=== PATIENT | female | born 1945 | race Two or more races ===

== ENCOUNTER 2021-02-11 15:09 | Outpatient (CLI) | payer OTHER | END 2021-02-11 15:10 | disposition home or self-care (01) | LOC: LAB 15:09 | PROVIDERS: ATTEND Orthopaedic Surgery | DX: R06.02 Shortness of breath (principal); N30.00 Acute cystitis without hematuria; D64.89 Other specified anemias; E55.9 Vitamin D deficiency, unspecified; M85.88 Other specified disorders of bone density and structure, other site; E21.2 Other hyperparathyroidism; E88.89 Other specified metabolic disorders; M81.8 Other osteoporosis without current pathological fracture; E56.1 Deficiency of vitamin K ==

== ENCOUNTER 2021-02-12 16:19 | Outpatient (CLI) | payer OTHER | END 2021-02-12 16:35 | disposition home or self-care (01) | LOC: RAD 16:19 | PROVIDERS: ATTEND Orthopaedic Surgery | DX: M25.552 Pain in left hip (principal); M87.051 Idiopathic aseptic necrosis of right femur ==

== ENCOUNTER 2021-02-25 14:32 | Outpatient (CLI) | payer OTHER | END 2021-02-25 14:34 | disposition home or self-care (01) | LOC: NUCLEAR 14:32 | PROVIDERS: ATTEND Orthopaedic Surgery | DX: M81.0 Age-related osteoporosis without current pathological fracture (principal) ==

== ENCOUNTER 2021-03-11 17:06 | Outpatient (CLI) | payer OTHER | END 2021-03-11 17:15 | disposition home or self-care (01) | LOC: LAB 17:06 | PROVIDERS: ATTEND Urology | DX: R31.1 Benign essential microscopic hematuria (principal); N30.00 Acute cystitis without hematuria; M05.8A Other rheumatoid arthritis with rheumatoid factor of other specified site ==

== ENCOUNTER 2021-03-25 00:24 | Emergency (ER) | payer OTHER ==
[~2021-03-25] VITALS: Ht 157.5 cm; Wt 68.0 kg
[2021-03-25] MEDS ORDERED: LENZAPATCH 4%-1 EACH TOP (02:39)
[2021-03-27] MEDS ORDERED: DICLOFENAC POTA50 MG PO (03:05)
[2021-03-27] MEDS ORDERED: ORPHENADRINE C100 MG PO (03:05)
[2021-03-27] MEDS ORDERED: MOBIC15 MG PO (03:20)
== END 2021-03-27 02:59 | disposition home or self-care (01) ==
LOC: ER 00:24
DX: S76.011A Strain of muscle, fascia and tendon of right hip, initial encounter (principal); S76.111A Strain of right quadriceps muscle, fascia and tendon, initial encounter; R60.0 Localized edema; M79.605 Pain in left leg; I73.9 Peripheral vascular disease, unspecified; M54.2 Cervicalgia; M62.838 Other muscle spasm; W01.0XXA Fall on same level from slipping, tripping and stumbling without subsequent striking against object, initial encounter; Y93.01 Activity, walking, marching and hiking; Y92.89 Other specified places as the place of occurrence of the external cause; Y99.8 Other external cause status

== ENCOUNTER 2021-03-25 06:52 | Outpatient (CLI) | payer OTHER ==
[~2021-03-25 06:52] MED LIST: LENZAPATCH 4%-1 EACH TOP
== END 2021-03-25 07:05 | disposition home or self-care (01) ==
LOC: LAB 06:52
DX: E24.8 Other Cushing's syndrome (principal)

== ENCOUNTER 2021-03-25 17:01 | Emergency (ER) | payer OTHER ==
[~2021-03-25] VITALS: Ht 160 cm; Wt 61.2 kg
[2021-03-27] MEDS ORDERED: ORPHENADRINE C100 MG PO (03:05)
[2021-03-27] MEDS ORDERED: DICLOFENAC POTA50 MG PO (03:05)
[2021-03-27] MEDS ORDERED: MOBIC15 MG PO (03:20)
== END 2021-03-26 11:19 | disposition left against medical advice (07) ==
LOC: ER 17:01
DX: I87.2 Venous insufficiency (chronic) (peripheral) (principal); R60.0 Localized edema; M79.605 Pain in left leg; R06.02 Shortness of breath; F91.8 Other conduct disorders

== ENCOUNTER 2021-03-26 23:40 | Emergency (ER) | payer OTHER ==
[~2021-03-26] VITALS: Ht 160 cm; Wt 65.3 kg
[2021-03-27] MEDS ORDERED: ORPHENADRINE C100 MG PO (03:05)
[2021-03-27] MEDS ORDERED: DICLOFENAC POTA50 MG PO (03:05)
[2021-03-27] MEDS ORDERED: MOBIC15 MG PO (03:20)
== END 2021-03-27 03:00 | disposition home or self-care (01) ==
LOC: ER 23:40
DX: M54.2 Cervicalgia (principal); M62.838 Other muscle spasm

== ENCOUNTER 2021-03-30 23:10 | Emergency (ER) | payer OTHER ==
[~2021-03-30] VITALS: Ht 160 cm; Wt 152.0 kg
[~2021-03-30 23:10] MED LIST changes: +DICLOFENAC POTA50 MG PO; +MOBIC15 MG PO; +ORPHENADRINE C100 MG PO
[2021-03-31] MEDS ORDERED: BACTRIM DS TAB1 EACH PO (02:18)
== END 2021-03-31 02:50 | disposition home or self-care (01) ==
LOC: ER 23:10
DX: N39.0 Urinary tract infection, site not specified (principal)

== ENCOUNTER 2021-04-03 13:44 | Outpatient (CLI) | payer OTHER ==
[~2021-04-03 13:44] MED LIST changes: +BACTRIM DS TAB1 EACH PO
== END 2021-04-03 13:51 | disposition home or self-care (01) ==
LOC: MRI 13:44
PROVIDERS: ATTEND Urology
DX: I82.211 Chronic embolism and thrombosis of superior vena cava (principal)

== ENCOUNTER 2021-04-04 11:37 | Outpatient (CLI) | payer OTHER, BC | END 2021-04-04 11:38 | disposition home or self-care (01) | LOC: NUCLEAR 11:37 | PROVIDERS: ATTEND Urology | DX: I82.C23 Chronic embolism and thrombosis of internal jugular vein, bilateral (principal) ==

== ENCOUNTER 2021-04-06 00:29 | Emergency (ER) | payer OTHER, BC ==
[~2021-04-06] VITALS: Ht 160 cm; Wt 61.2 kg
[2021-04-06] MEDS ORDERED: NAPROXEN500 MG PO (03:31)
[2021-04-06] MEDS ORDERED: NORFLEX100MG PO (03:31)
== END 2021-04-06 04:21 | disposition home or self-care (01) ==
LOC: ER 00:29
DX: M25.512 Pain in left shoulder (principal)

== ENCOUNTER 2021-04-15 11:36 | Outpatient (CLI) | payer OTHER ==
[~2021-04-15 11:36] MED LIST changes: +NAPROXEN500 MG PO; +NORFLEX100MG PO
== END 2021-04-15 12:07 | disposition home or self-care (01) ==
LOC: RAD 11:36
PROVIDERS: ATTEND Orthopaedic Surgery
DX: M25.512 Pain in left shoulder (principal)

== ENCOUNTER 2021-04-25 11:52 | Outpatient (CLI) | payer OTHER, BC | END 2021-04-25 12:02 | disposition home or self-care (01) | LOC: LAB 11:52 | PROVIDERS: ATTEND Urology | DX: N30.00 Acute cystitis without hematuria (principal) ==

== ENCOUNTER → 2021-04-26 | Emergency (ER) | payer OTHER, BC ==
[~2021-04-26] VITALS: Ht 160 cm; Wt 59.0 kg
[~2021-04-26] MED LIST changes: +KETO10TA2 PO; +MEDROLPACK PO; +PROVENTIL HFA6.7 GM IH
== END | disposition left against medical advice (07) ==
LOC: ER 00:29
DX: Z53.20 Procedure and treatment not carried out because of patient's decision for unspecified reasons (principal)

== ENCOUNTER 2021-04-30 23:37 | Emergency (ER) | payer OTHER, BC ==
[~2021-04-30] VITALS: Ht 160 cm; Wt 56.7 kg
[~2021-04-30 23:37] MED LIST changes: -KETO10TA2 PO; -MEDROLPACK PO; -PROVENTIL HFA6.7 GM IH
[2021-05-01] MEDS ORDERED: PROVENTIL HFA6.7 GM IH (04:50)
== END 2021-05-01 05:39 | disposition home or self-care (01) ==
LOC: ER 23:37
DX: R05.9 Cough, unspecified (principal)

== ENCOUNTER 2021-05-03 21:50 | Emergency (ER) | payer OTHER, BC ==
[~2021-05-03] VITALS: Ht 160 cm; Wt 56.7 kg
[~2021-05-03 21:50] MED LIST changes: +PROVENTIL HFA6.7 GM IH
[2021-05-04] MEDS ORDERED: MEDROLPACK PO (02:17)
[2021-05-04] MEDS ORDERED: NORFLEX100MG PO (02:17)
[2021-05-04] MEDS ORDERED: KETO10TA2 PO (02:17)
== END 2021-05-04 06:14 | disposition home or self-care (01) ==
LOC: ER 21:50
DX: M54.2 Cervicalgia (principal)

== ENCOUNTER 2021-05-15 23:45 | Emergency (ER) | payer OTHER, BC ==
[~2021-05-15] VITALS: Ht 160 cm; Wt 59.0 kg
[~2021-05-15 23:45] MED LIST changes: -SINGULAIR10 MG; -Z-TUSS AC 2 MG118 ML PO; -ZYNCOF 20-400120 ML PO
== END 2021-05-16 02:16 | disposition home or self-care (01) ==
LOC: ER 23:45
DX: T78.40XA Allergy, unspecified, initial encounter (principal); X58.XXXA Exposure to other specified factors, initial encounter

== ENCOUNTER → 2021-05-15 | Emergency (ER) | payer OTHER, BC ==
[~2021-05-15] VITALS: Ht 160 cm; Wt 56.7 kg
[~2021-05-15] MED LIST changes: +KETO10TA2 PO; +MEDROLPACK PO; +SINGULAIR10 MG; +Z-TUSS AC 2 MG118 ML PO; +ZYNCOF 20-400120 ML PO
== END | disposition home or self-care (01) ==
LOC: ER 00:57
DX: M25.561 Pain in right knee (principal); T78.40XA Allergy, unspecified, initial encounter; X58.XXXA Exposure to other specified factors, initial encounter

== ENCOUNTER 2021-05-29 02:04 | Emergency (ER) | payer OTHER, BC ==
[~2021-05-29] VITALS: Ht 160 cm; Wt 56.7 kg
[2021-05-29] MEDS ORDERED: BACTRIM DS TAB1 EACH PO (05:39)
== END 2021-05-29 06:22 ==
LOC: ER 02:04
DX: J45.909 Unspecified asthma, uncomplicated (principal); R60.0 Localized edema; Z88.0 Allergy status to penicillin; Z88.1 Allergy status to other antibiotic agents

== ENCOUNTER 2021-06-03 00:15 | Emergency (ER) | payer OTHER, BC ==
[~2021-06-03] VITALS: Ht 160 cm; Wt 59.0 kg
[2021-06-03] MEDS ORDERED: Z-TUSS AC 2 MG118 ML PO (03:03)
== END 2021-06-03 03:29 ==
LOC: ER 00:15
DX: R06.02 Shortness of breath (principal); R05.9 Cough, unspecified

== ENCOUNTER 2021-06-08 23:19 | Emergency (ER) | payer OTHER, BC ==
[~2021-06-08] VITALS: Ht 160 cm; Wt 59.0 kg
[~2021-06-08 23:19] MED LIST changes: +Z-TUSS AC 2 MG118 ML PO
== END 2021-06-09 09:17 | disposition home or self-care (01) ==
LOC: ER 23:19
DX: J06.9 Acute upper respiratory infection, unspecified (principal); R06.02 Shortness of breath; J45.901 Unspecified asthma with (acute) exacerbation; Z88.0 Allergy status to penicillin; Z88.1 Allergy status to other antibiotic agents

== ENCOUNTER 2021-06-11 23:47 | Emergency (ER) | payer OTHER, BC ==
[~2021-06-11] VITALS: Ht 160 cm; Wt 59.0 kg
[2021-06-11] MEDS ORDERED: SINGULAIR10 MG (23:59)
[2021-06-12] MEDS ORDERED: ZYNCOF 20-400120 ML PO (04:50)
== END 2021-06-12 05:05 | disposition home or self-care (01) ==
LOC: ER 23:47
DX: J45.901 Unspecified asthma with (acute) exacerbation (principal)

== ENCOUNTER 2021-06-21 06:51 | Outpatient (CLI) | payer OTHER, BC ==
[~2021-06-21 06:51] MED LIST changes: +SINGULAIR10 MG; +ZYNCOF 20-400120 ML PO
== END 2021-06-21 06:54 | disposition home or self-care (01) ==
LOC: LAB 06:51
PROVIDERS: ATTEND Urology
DX: N30.00 Acute cystitis without hematuria (principal)

== ENCOUNTER 2021-06-24 23:28 | Emergency (ER) | payer OTHER, BC ==
[~2021-06-24] VITALS: Ht 160 cm; Wt 56.7 kg
== END 2021-06-25 04:41 | disposition home or self-care (01) ==
LOC: ER 23:28
DX: R05.9 Cough, unspecified (principal)

== ENCOUNTER 2021-07-25 23:39 | Emergency (ER) | payer OTHER ==
[~2021-07-25] VITALS: Ht 160 cm; Wt 56.7 kg
[2021-07-26] MEDS ORDERED: KETO10TA2 PO (03:04)
[2021-07-26] MEDS ORDERED: ORPHENADRINE C100 MG PO (03:04)
[2021-07-29] MEDS ORDERED: MOBIC15 MG PO (04:13)
[2021-07-31] MEDS ORDERED: LEVSIN/SL0.125 MG SL (06:12)
== END 2021-07-26 03:17 | disposition home or self-care (01) ==
LOC: ER 23:39
DX: S16.1XXA Strain of muscle, fascia and tendon at neck level, initial encounter (principal); S39.012A Strain of muscle, fascia and tendon of lower back, initial encounter; W19.XXXA Unspecified fall, initial encounter; S96.911A Strain of unspecified muscle and tendon at ankle and foot level, right foot, initial encounter; Y93.9 Activity, unspecified; Y92.9 Unspecified place or not applicable; Y99.9 Unspecified external cause status; Z88.0 Allergy status to penicillin; Z88.8 Allergy status to other drugs, medicaments and biological substances; Z91.010 Allergy to peanuts

== ENCOUNTER 2021-07-27 07:34 | Outpatient (CLI) | payer OTHER, BC ==
[~2021-07-27 07:34] MED LIST changes: -LEVSIN/SL0.125 MG SL
[2021-07-29] MEDS ORDERED: MOBIC15 MG PO (04:13)
[2021-07-31] MEDS ORDERED: LEVSIN/SL0.125 MG SL (06:12)
== END 2021-07-27 10:00 | disposition home or self-care (01) ==
LOC: LAB 07:34
PROVIDERS: ATTEND Urology
DX: N30.00 Acute cystitis without hematuria (principal)

== ENCOUNTER → 2021-07-27 | Emergency (ER) | payer OTHER ==
[~2021-07-27] VITALS: Ht 160 cm; Wt 56.7 kg
[~2021-07-27] MED LIST changes: +LEVSIN/SL0.125 MG SL
== END | disposition left against medical advice (07) ==
LOC: ER 00:48
DX: Z53.21 Procedure and treatment not carried out due to patient leaving prior to being seen by health care provider (principal)

== ENCOUNTER 2021-07-28 00:54 | Emergency (ER) | payer OTHER, BC ==
[~2021-07-28] VITALS: Ht 160 cm; Wt 56.7 kg
[2021-07-29] MEDS ORDERED: MOBIC15 MG PO (04:13)
[2021-07-31] MEDS ORDERED: LEVSIN/SL0.125 MG SL (06:12)
== END 2021-07-28 04:15 | disposition left against medical advice (07) ==
LOC: ER 00:54
DX: Z53.21 Procedure and treatment not carried out due to patient leaving prior to being seen by health care provider (principal)

== ENCOUNTER 2021-08-07 15:18 | Outpatient (CLI) | payer OTHER, BC ==
[~2021-08-07 15:18] MED LIST changes: +LEVSIN/SL0.125 MG SL
== END 2021-08-07 15:32 | disposition home or self-care (01) ==
LOC: RAD 15:18 → LAB 15:18
PROVIDERS: ATTEND Urology
DX: R06.02 Shortness of breath (principal); I50.20 Unspecified systolic (congestive) heart failure; I21.9 Acute myocardial infarction, unspecified; R07.9 Chest pain, unspecified

== ENCOUNTER 2021-09-06 13:42 | Outpatient (CLI) | payer OTHER, BC | END 2021-09-06 13:44 | disposition home or self-care (01) | LOC: LAB 13:42 | PROVIDERS: ATTEND Urology | DX: M06.4 Inflammatory polyarthropathy (principal); R31.1 Benign essential microscopic hematuria; E03.9 Hypothyroidism, unspecified; E78.5 Hyperlipidemia, unspecified; E27.9 Disorder of adrenal gland, unspecified; R73.9 Hyperglycemia, unspecified ==

== ENCOUNTER 2021-09-11 13:29 | Outpatient (CLI) | payer OTHER, BC | END 2021-09-11 13:45 | disposition home or self-care (01) | LOC: SONOGRAMA 13:29 | PROVIDERS: ATTEND Urology | DX: R31.1 Benign essential microscopic hematuria (principal); R33.9 Retention of urine, unspecified ==

== ENCOUNTER 2021-10-02 10:42 | Outpatient (CLI) | payer OTHER, BC | END 2021-10-02 16:12 | disposition home or self-care (01) | LOC: LAB 10:42 | PROVIDERS: ATTEND Urology | DX: R31.1 Benign essential microscopic hematuria (principal); N30.00 Acute cystitis without hematuria; D68.8 Other specified coagulation defects ==

== ENCOUNTER 2021-10-15 23:08 | Emergency (ER) | payer OTHER, BC ==
[~2021-10-15] VITALS: Ht 160 cm; Wt 61.2 kg
[2021-10-16] MEDS ORDERED: TOBRADEX EYE DR10 ML OP (06:22)
== END 2021-10-16 07:44 | disposition home or self-care (01) ==
LOC: ER 23:08
DX: J06.9 Acute upper respiratory infection, unspecified (principal); H60.92 Unspecified otitis externa, left ear; Z88.0 Allergy status to penicillin; Z88.1 Allergy status to other antibiotic agents; Z91.013 Allergy to seafood; Z91.018 Allergy to other foods; Z20.822 Contact with and (suspected) exposure to COVID-19

== ENCOUNTER 2021-10-17 01:18 | Emergency (ER) | payer OTHER, BC ==
[~2021-10-17] VITALS: Ht 160 cm; Wt 61.2 kg
[~2021-10-17 01:18] MED LIST changes: +TOBRADEX EYE DR10 ML OP
== END 2021-10-17 13:06 | disposition home or self-care (01) ==
LOC: ER 01:18
DX: N30.90 Cystitis, unspecified without hematuria (principal); Z20.822 Contact with and (suspected) exposure to COVID-19; Z88.0 Allergy status to penicillin; Z88.8 Allergy status to other drugs, medicaments and biological substances; Z91.010 Allergy to peanuts

== ENCOUNTER 2021-10-17 13:14 | Outpatient (CLI) | payer OTHER, BC | END 2021-10-17 13:16 | disposition home or self-care (01) | LOC: NUCLEAR 13:14 | PROVIDERS: ATTEND General Practice | DX: R22.42 Localized swelling, mass and lump, left lower limb (principal); Z88.0 Allergy status to penicillin; Z88.1 Allergy status to other antibiotic agents; Z91.010 Allergy to peanuts; Z91.013 Allergy to seafood; Z91.018 Allergy to other foods ==

== ENCOUNTER → 2021-10-18 | Outpatient (CLI) | payer OTHER, BC | END | disposition home or self-care (01) | LOC: NUCLEAR 13:00 | PROVIDERS: ATTEND General Practice | DX: R22.42 Localized swelling, mass and lump, left lower limb (principal); Z88.0 Allergy status to penicillin; Z88.1 Allergy status to other antibiotic agents; Z91.010 Allergy to peanuts; Z91.013 Allergy to seafood; Z91.018 Allergy to other foods ==

== ENCOUNTER → 2021-10-31 | Emergency (ER) | payer OTHER ==
[~2021-10-31] VITALS: Ht 160 cm; Wt 57.6 kg
[~2021-10-31] MED LIST changes: +INTESTINEX680 M1 PO
== END | disposition home or self-care (01) ==
LOC: ER 03:44
DX: R10.84 Generalized abdominal pain (principal); Z88.0 Allergy status to penicillin; Z88.8 Allergy status to other drugs, medicaments and biological substances; Z91.010 Allergy to peanuts

== ENCOUNTER 2021-11-10 03:11 | Emergency (ER) | payer OTHER ==
[~2021-11-10] VITALS: Ht 160 cm; Wt 59.0 kg
[~2021-11-10 03:11] MED LIST changes: +LEVSIN0.125 MG PO; +PEPCID AC20 MG PO
== END 2021-11-10 11:30 | disposition left against medical advice (07) ==
LOC: ER 03:11
DX: K52.9 Noninfective gastroenteritis and colitis, unspecified (principal); Z88.0 Allergy status to penicillin; Z88.8 Allergy status to other drugs, medicaments and biological substances; Z91.010 Allergy to peanuts

== ENCOUNTER 2021-11-11 09:25 | Outpatient (CLI) | payer OTHER, BC | END 2021-11-11 09:26 | disposition home or self-care (01) | LOC: LAB 09:25 | PROVIDERS: ATTEND Urology | DX: R19.7 Diarrhea, unspecified (principal) ==

== ENCOUNTER 2021-11-14 03:13 | Emergency (ER) | payer OTHER, BC ==
[~2021-11-14] VITALS: Ht 160 cm; Wt 59.0 kg
[2021-11-14] MEDS ORDERED: INTESTINEX680 M1 PO (07:24)
[2021-11-14] MEDS ORDERED: LEVSIN/SL0.125 MG SL (07:24)
== END 2021-11-14 07:41 ==
LOC: ER 03:13
DX: K21.00 Gastro-esophageal reflux disease with esophagitis, without bleeding (principal); Z88.0 Allergy status to penicillin; Z88.8 Allergy status to other drugs, medicaments and biological substances; Z91.010 Allergy to peanuts

== ENCOUNTER 2021-11-16 00:30 | Emergency (ER) | payer OTHER, BC ==
[~2021-11-16] VITALS: Ht 160 cm; Wt 61.2 kg
[2021-11-16] MEDS ORDERED: MUCINEX DM ER1 EACH PO (05:21)
[2021-11-16] MEDS ORDERED: ACETAMINOPHEN650 M2 PO (05:21)
== END 2021-11-16 05:27 | disposition home or self-care (01) ==
LOC: ER 00:30
DX: J06.9 Acute upper respiratory infection, unspecified (principal); B34.8 Other viral infections of unspecified site; Z20.828 Contact with and (suspected) exposure to other viral communicable diseases

== ENCOUNTER 2022-01-04 11:06 | Outpatient (CLI) | payer OTHER, BC ==
[~2022-01-04 11:06] MED LIST changes: +ACETAMINOPHEN650 M2 PO; +DICLOFENAC SOD100 MG PO; +MUCINEX DM ER1 EACH PO; +PEPCID40 MG PO
== END 2022-01-04 11:07 | disposition home or self-care (01) ==
LOC: LAB 11:06
PROVIDERS: ATTEND Urology
DX: I82.90 Acute embolism and thrombosis of unspecified vein (principal); R31.1 Benign essential microscopic hematuria; N30.00 Acute cystitis without hematuria; R71.8 Other abnormality of red blood cells

== ENCOUNTER 2022-01-21 00:41 | Emergency (ER) | payer OTHER, BC ==
[~2022-01-21] VITALS: Ht 160 cm; Wt 59.0 kg
[2022-01-21] MEDS ORDERED: INTESTINEX680 M1 PO (05:32)
[2022-01-21] MEDS ORDERED: PEPCID AC20 MG PO (05:32)
== END 2022-01-21 05:37 | disposition home or self-care (01) ==
LOC: ER 00:41
DX: R19.7 Diarrhea, unspecified (principal); A05.9 Bacterial foodborne intoxication, unspecified; E03.9 Hypothyroidism, unspecified; Z88.0 Allergy status to penicillin; Z88.1 Allergy status to other antibiotic agents; Z91.010 Allergy to peanuts; Z91.013 Allergy to seafood; Z88.8 Allergy status to other drugs, medicaments and biological substances

== ENCOUNTER 2022-03-12 14:35 | Outpatient (CLI) | payer OTHER, BC ==
[~2022-03-12 14:35] MED LIST changes: +GUAIFENESIN400 MG PO; +THYROID; +ZITHROMAX500 MG PO
== END 2022-03-12 14:39 | disposition home or self-care (01) ==
LOC: LAB 14:35
PROVIDERS: ATTEND Urology
DX: N30.00 Acute cystitis without hematuria (principal); Z20.822 Contact with and (suspected) exposure to COVID-19

== ENCOUNTER → 2022-03-13 | Outpatient (CLI) | payer OTHER, BC | END | disposition home or self-care (01) | LOC: SONOGRAMA 15:30 | PROVIDERS: ATTEND Obstetrics & Gynecology | DX: R10.2 Pelvic and perineal pain (principal); G25.5 Other chorea ==

== ENCOUNTER 2022-03-14 15:04 | Outpatient (CLI) | payer OTHER, BC | END 2022-03-14 15:09 | disposition home or self-care (01) | LOC: LAB 15:04 | PROVIDERS: ATTEND Urology | DX: N30.00 Acute cystitis without hematuria (principal); R31.1 Benign essential microscopic hematuria ==

== ENCOUNTER 2022-03-15 10:56 | Outpatient (CLI) | payer OTHER, BC | END 2022-03-15 11:00 | disposition home or self-care (01) | LOC: LAB 10:56 | PROVIDERS: ATTEND Urology | DX: R31.0 Gross hematuria (principal) ==

== ENCOUNTER 2022-04-03 10:13 | Outpatient (CLI) | payer OTHER, BC | END 2022-04-03 14:57 | disposition home or self-care (01) | LOC: LAB 10:13 | PROVIDERS: ATTEND Urology | DX: R31.1 Benign essential microscopic hematuria (principal); R04.2 Hemoptysis ==

== ENCOUNTER 2022-04-16 09:58 | Outpatient (CLI) | payer OTHER, BC | END 2022-04-16 10:10 | disposition home or self-care (01) | LOC: NUCLEAR 09:58 | PROVIDERS: ATTEND Internal Medicine Cardiovascular Disease | DX: I87.2 Venous insufficiency (chronic) (peripheral) (principal); Z88.0 Allergy status to penicillin; Z88.1 Allergy status to other antibiotic agents; Z91.010 Allergy to peanuts; Z91.013 Allergy to seafood; Z91.018 Allergy to other foods ==

== ENCOUNTER 2022-04-26 12:16 | Outpatient (CLI) | payer OTHER, BC | END 2022-04-26 12:17 | disposition home or self-care (01) | LOC: LAB 12:16 | PROVIDERS: ATTEND Urology | DX: N30.00 Acute cystitis without hematuria (principal) ==

== ENCOUNTER → 2022-04-28 09:54 | Outpatient (CLI) | payer OTHER, BC | END | disposition home or self-care (01) | LOC: LAB 09:54 | PROVIDERS: ATTEND Urology | DX: N30.00 Acute cystitis without hematuria (principal) ==

== ENCOUNTER → 2022-04-29 08:48 | Outpatient (CLI) | payer OTHER, BC | END | disposition home or self-care (01) | LOC: LAB 08:48 | PROVIDERS: ATTEND Urology | DX: R05.9 Cough, unspecified (principal); J18.9 Pneumonia, unspecified organism ==

== ENCOUNTER 2022-04-30 08:59 | Outpatient (CLI) | payer OTHER, BC | END 2022-04-30 09:10 | disposition home or self-care (01) | LOC: LAB 08:59 | PROVIDERS: ATTEND Urology | DX: E03.9 Hypothyroidism, unspecified (principal); F59 Unspecified behavioral syndromes associated with physiological disturbances and physical factors ==

== ENCOUNTER → 2022-05-01 08:27 | Outpatient (CLI) | payer OTHER, BC | END | disposition home or self-care (01) | LOC: LAB 08:27 | PROVIDERS: ATTEND Urology | DX: M13.80 Other specified arthritis, unspecified site (principal) ==

== ENCOUNTER 2022-05-12 12:41 | Outpatient (CLI) | payer OTHER, BC | END 2022-05-12 13:08 | disposition home or self-care (01) | LOC: LAB 12:41 | PROVIDERS: ATTEND Urology | DX: A49.1 Streptococcal infection, unspecified site (principal) ==

== ENCOUNTER 2022-05-30 13:36 | Outpatient (CLI) | payer OTHER, BC | END 2022-05-30 13:39 | disposition home or self-care (01) | LOC: TOM 13:36 | PROVIDERS: ATTEND Urology | DX: M25.512 Pain in left shoulder (principal); S42.032A Displaced fracture of lateral end of left clavicle, initial encounter for closed fracture ==

== ENCOUNTER 2022-07-15 10:24 | Outpatient (CLI) | payer OTHER, BC | END 2022-07-15 10:35 | disposition home or self-care (01) | LOC: RAD 10:24 | PROVIDERS: ATTEND Urology | DX: S42.032A Displaced fracture of lateral end of left clavicle, initial encounter for closed fracture (principal); R31.1 Benign essential microscopic hematuria ==

== ENCOUNTER 2022-08-05 22:16 | Emergency (ER) | payer OTHER ==
[~2022-08-05] VITALS: Ht 160 cm; Wt 61.2 kg
[2022-08-05] MEDS ORDERED: MONTELUKAST SODI4 M1 PO (22:31)
== END 2022-08-06 03:29 | disposition home or self-care (01) ==
LOC: ER 22:16
DX: N39.0 Urinary tract infection, site not specified (principal); E03.9 Hypothyroidism, unspecified; Z88.0 Allergy status to penicillin; Z88.8 Allergy status to other drugs, medicaments and biological substances

== ENCOUNTER 2022-09-17 14:34 | Outpatient (CLI) | payer OTHER ==
[~2022-09-17 14:34] MED LIST changes: +MONTELUKAST SODI4 M1 PO
== END 2022-09-17 14:46 | disposition home or self-care (01) ==
LOC: SONOGRAMA 14:34
DX: N31.1 Reflex neuropathic bladder, not elsewhere classified (principal); M30.0 Polyarteritis nodosa

== ENCOUNTER 2022-10-27 10:23 | Outpatient (CLI) | payer OTHER | END 2022-10-27 10:29 | disposition home or self-care (01) | LOC: RAD 10:23 | PROVIDERS: ATTEND Urology | DX: R05.3 Chronic cough (principal) ==

== ENCOUNTER 2022-12-16 09:55 | Outpatient (CLI) | payer OTHER | END 2022-12-16 10:06 | disposition home or self-care (01) | LOC: TOM 09:55 | PROVIDERS: ATTEND Urology | DX: N20.0 Calculus of kidney (principal) ==

== ENCOUNTER 2023-02-12 14:19 | Outpatient (CLI) | payer OTHER | END 2023-02-13 08:42 | disposition home or self-care (01) | LOC: TOM 14:19 | DX: J47.9 Bronchiectasis, uncomplicated (principal); M16.0 Bilateral primary osteoarthritis of hip ==

== ENCOUNTER 2023-02-23 13:50 | Outpatient (CLI) | payer OTHER | END 2023-02-23 13:51 | disposition home or self-care (01) | LOC: LAB 13:50 | PROVIDERS: ATTEND Urology | DX: I25.110 Atherosclerotic heart disease of native coronary artery with unstable angina pectoris (principal); Z88.0 Allergy status to penicillin; Z88.1 Allergy status to other antibiotic agents; Z91.018 Allergy to other foods ==

== ENCOUNTER 2023-02-24 09:24 | Outpatient (CLI) | payer OTHER | END 2023-02-24 09:25 | disposition home or self-care (01) | LOC: NUCLEAR 09:24 | DX: I25.110 Atherosclerotic heart disease of native coronary artery with unstable angina pectoris (principal) ==

== ENCOUNTER 2023-03-06 15:38 | Outpatient (CLI) | payer OTHER | END 2023-03-06 15:43 | disposition home or self-care (01) | LOC: RAD 15:38 | PROVIDERS: ATTEND Urology | DX: R31.1 Benign essential microscopic hematuria (principal) ==

== ENCOUNTER 2023-03-19 14:44 | Emergency (ER) | payer OTHER ==
[~2023-03-19] VITALS: Ht 160 cm; Wt 62.6 kg
== END 2023-03-19 17:39 | disposition home or self-care (01) ==
LOC: ER 14:44
DX: J45.909 Unspecified asthma, uncomplicated (principal); Z88.0 Allergy status to penicillin; Z91.013 Allergy to seafood; Z91.018 Allergy to other foods
CPT/HCPCS: 94640; 96365; 99284; J2930 ×2

== ENCOUNTER 2023-04-02 15:29 | Outpatient (CLI) | payer OTHER | END 2023-04-02 23:00 | disposition home or self-care (01) | LOC: LAB 15:29 | PROVIDERS: ATTEND Urology | DX: B44.7 Disseminated aspergillosis (principal) ==

== ENCOUNTER → 2023-04-06 13:40 | Outpatient (CLI) | payer OTHER ==
[2023-04-06 14:47] LABS: PH,URINE 5.5 (5.0-8.0); URINE APPEARANCE Clear; URINE BILIRRUBIN Negative (NEGATIVE); URINE BLOOD Negative; URINE COLOR Yellow; URINE GLUCOSE Negative (NEGATIVE); URINE LEUKOCYTE Trace; URINE NITRATE Negative; URINE PROTEIN Negative (NEGATIVE); URINE UROBILINOGEN 0.2 E.U./dl
[2023-04-06 14:51] LABS: URINE BACTERIA 64.2 uL (0.0-1933); URINE EPITHELIAL CELLS 6.7 uL (0.0-38.8); URINE WBC 10.1 uL (0.0-23.2)
== END | disposition home or self-care (01) ==
LOC: LAB 13:40
PROVIDERS: ATTEND Urology
DX: N30.00 Acute cystitis without hematuria (principal)

== ENCOUNTER 2023-04-08 13:12 | Outpatient (CLI) | payer OTHER | END 2023-04-08 13:14 | disposition home or self-care (01) | LOC: RAD 13:12 | PROVIDERS: ATTEND Urology | DX: R05.9 Cough, unspecified (principal) ==

== ENCOUNTER 2023-04-21 14:09 | Outpatient (CLI) | payer OTHER ==
[2023-04-21 14:38] LABS: HEMATOCRIT 38.3 % (36.0-45.00); MEAN CELL VOLUME 97.1 fL (80.00-100.00); MEAN CORPUSCULAR HEMOGLOBIN 33.1 pg (27.00-32.0); MEAN CORPUSCULAR HGB CONC 34.1 g/dl (32.0-36.0); PLATELET COUNT 249 K/uL (150-450); RED BLOOD COUNT 3.94 M/uL (4.00-6.00); RED CELL DISTRIBUTION WIDTH 14.3 % (11.5-14.5)
[2023-04-21 14:58] LABS: ALBUMIN 3.5 gm/dL (3.4-5.0); BILIRUBIN TOTAL 0.41 mg/dL (0.3-1.2); CALCIUM 9.1 mg/dL (8.5-10.1); CREATININE SERUM 0.74 mg/dL (0.55-1.02); GFR 75.71; GLOBULINA 3.8 G/DL (2.4-3.5); POTASSIUM 3.9 mEq/L (3.5-5.1); TOTAL PROTEIN 7.3 gm/dL (6.4-8.2)
[2023-04-21 15:43] LABS: TSH 9.2 uIU/mL (0.358-3.74)
== END 2023-04-21 14:16 | disposition home or self-care (01) ==
LOC: LAB 14:09
PROVIDERS: ATTEND Urology
DX: R31.1 Benign essential microscopic hematuria (principal); E78.5 Hyperlipidemia, unspecified; E03.9 Hypothyroidism, unspecified; R73.9 Hyperglycemia, unspecified; R10.10 Upper abdominal pain, unspecified; I11.0 Hypertensive heart disease with heart failure

== ENCOUNTER 2023-04-24 13:05 | Outpatient (CLI) | payer OTHER | END 2023-04-24 13:06 | disposition home or self-care (01) | LOC: TOM 13:05 | PROVIDERS: ATTEND Internal Medicine Hematology & Oncology | DX: B44.81 Allergic bronchopulmonary aspergillosis (principal) ==

== ENCOUNTER 2023-04-30 09:21 | Outpatient (CLI) | payer OTHER ==
[2023-04-30 10:22] LABS: HEMATOCRIT 37.9 % (36.0-45.00); HEMOGLOBIN 12.8 g/dL (12.0-15.00); MEAN CELL VOLUME 97.5 fL (80.00-100.00); MEAN CORPUSCULAR HGB CONC 33.9 g/dl (32.0-36.0); PLATELET COUNT 242 K/uL (150-450); RED BLOOD COUNT 3.88 M/uL (4.00-6.00); RED CELL DISTRIBUTION WIDTH 14.5 % (11.5-14.5)
== END 2023-04-30 09:23 | disposition home or self-care (01) ==
LOC: LAB 09:21
DX: J30.1 Allergic rhinitis due to pollen (principal); J45.20 Mild intermittent asthma, uncomplicated; B44.1 Other pulmonary aspergillosis; J30.89 Other allergic rhinitis; T50.995A Adverse effect of other drugs, medicaments and biological substances, initial encounter

== ENCOUNTER 2023-05-04 15:50 | Outpatient (CLI) | payer OTHER | END 2023-05-04 15:56 | disposition home or self-care (01) | LOC: RAD 15:50 | DX: W19.XXXA Unspecified fall, initial encounter (principal) ==

== ENCOUNTER → 2023-05-06 09:19 | Outpatient (CLI) | payer OTHER ==
[2023-05-06 10:21] LABS: HEMATOCRIT 38.2 % (36.0-45.00); HEMOGLOBIN 13.1 g/dL (12.0-15.00); MEAN CELL VOLUME 96.5 fL (80.00-100.00); MEAN CORPUSCULAR HGB CONC 34.2 g/dl (32.0-36.0); PLATELET COUNT 260 K/uL (150-450); RED BLOOD COUNT 3.96 M/uL (4.00-6.00); RED CELL DISTRIBUTION WIDTH 14.3 % (11.5-14.5)
[2023-05-06 11:05] LABS: ALBUMIN 3.8 gm/dL (3.4-5.0); BILIRUBIN TOTAL 0.83 mg/dL (0.3-1.2); CALCIUM 9.4 mg/dL (8.5-10.1); CREATININE SERUM 0.93 mg/dL (0.55-1.02); GFR 58.16; GLOBULINA 3.2 G/DL (2.4-3.5); POTASSIUM 3.86 mEq/L (3.5-5.1)
== END | disposition home or self-care (01) ==
LOC: LAB 09:19
PROVIDERS: ATTEND Urology
DX: K75.4 Autoimmune hepatitis (principal); R31.0 Gross hematuria; Z88.0 Allergy status to penicillin; Z88.1 Allergy status to other antibiotic agents; Z91.018 Allergy to other foods

== ENCOUNTER 2023-05-09 11:30 | Outpatient (CLI) | payer OTHER ==
[2023-05-09 14:07] LABS: URINE APPEARANCE Clear; URINE BILIRRUBIN Negative (NEGATIVE); URINE BLOOD Negative; URINE COLOR Dark Yellow; URINE GLUCOSE Negative (NEGATIVE); URINE LEUKOCYTE Trace; URINE NITRATE Negative; URINE PROTEIN Negative (NEGATIVE); URINE UROBILINOGEN 0.2 E.U./dl
[2023-05-09 14:11] LABS: URINE BACTERIA 694.1 uL (0.0-1933); URINE RBC 6.3 uL (0.0-20.8)
[2023-05-09 14:17] LABS: URINE EPITHELIAL CELLS 1.3 uL (0.0-38.8)
== END 2023-05-09 11:31 | disposition home or self-care (01) ==
LOC: LAB 11:30
PROVIDERS: ATTEND Urology
DX: N30.00 Acute cystitis without hematuria (principal); A49.3 Mycoplasma infection, unspecified site

== ENCOUNTER 2023-05-19 15:21 | Outpatient (CLI) | payer OTHER ==
[2023-05-24 16:09] LABS: ASPERGILLUS FLAVUS Negative (Neg:<1:1); ASPERGILLUS FUMIGATUS Negative (Neg:<1:1); ASPERGILLUS NIGER Negative (Neg:<1:1)
== END 2023-05-19 15:27 | disposition home or self-care (01) ==
LOC: LAB 15:21
PROVIDERS: ATTEND Urology
DX: B44.9 Aspergillosis, unspecified (principal); I50.20 Unspecified systolic (congestive) heart failure

== ENCOUNTER 2023-05-21 16:06 | Outpatient (CLI) | payer OTHER | END 2023-05-21 16:19 | disposition home or self-care (01) | LOC: TOM 16:06 | PROVIDERS: ATTEND Urology | DX: M84.341A Stress fracture, right hand, initial encounter for fracture (principal) ==

== ENCOUNTER → 2023-05-22 11:08 | Outpatient (CLI) | payer OTHER | END | disposition home or self-care (01) | LOC: LAB 11:08 | PROVIDERS: ATTEND Urology | DX: R19.7 Diarrhea, unspecified (principal) ==

== ENCOUNTER → 2023-05-22 | Outpatient (CLI) | payer OTHER | END | disposition home or self-care (01) | LOC: TOM 15:17 | DX: J33.8 Other polyp of sinus (principal) ==

== ENCOUNTER → 2023-05-30 11:54 | Outpatient (CLI) | payer OTHER ==
[2023-05-30 14:17] LABS: URINE APPEARANCE Clear; URINE BILIRRUBIN Negative (NEGATIVE); URINE BLOOD Negative; URINE COLOR Yellow; URINE GLUCOSE Negative (NEGATIVE); URINE LEUKOCYTE Moderate; URINE NITRATE Negative; URINE PROTEIN Trace (NEGATIVE); URINE UROBILINOGEN 0.2 E.U./dl
[2023-05-30 14:21] LABS: URINE EPITHELIAL CELLS 12.9 uL (0.0-38.8); URINE RBC 4.7 uL (0.0-20.8); URINE WBC 31.6 uL (0.0-23.2)
== END | disposition home or self-care (01) ==
LOC: LAB 11:54
PROVIDERS: ATTEND Urology
DX: N30.00 Acute cystitis without hematuria (principal)

== ENCOUNTER 2023-06-02 16:08 | Outpatient (CLI) | payer OTHER ==
[2023-06-02 18:45] LABS: URINE APPEARANCE Clear; URINE BILIRRUBIN Negative (NEGATIVE); URINE BLOOD Negative; URINE COLOR Dark Yellow; URINE GLUCOSE Negative (NEGATIVE); URINE LEUKOCYTE Trace; URINE NITRATE Negative; URINE PROTEIN 30 (NEGATIVE)
[2023-06-02 18:48] LABS: URINE BACTERIA 122.1 uL (0.0-1933); URINE WBC 11.8 uL (0.0-23.2)
== END 2023-06-02 16:26 | disposition home or self-care (01) ==
LOC: LAB 16:08
PROVIDERS: ATTEND Urology
DX: N30.00 Acute cystitis without hematuria (principal)

== ENCOUNTER 2023-06-09 20:10 | Emergency (ER) | payer OTHER ==
[~2023-06-09] VITALS: Ht 160 cm; Wt 61.2 kg
[2023-06-09] MEDS ORDERED: SYNTHROID100 MCG PO (20:39)
[2023-06-10] MEDS ORDERED: ORAPRED ODT10 MG PO (01:36)
[2023-06-10] MEDS ORDERED: FUROSEMIDE20 MG PO (04:04)
== END 2023-06-10 00:18 | disposition left against medical advice (07) ==
LOC: ER 20:10
DX: R06.9 Unspecified abnormalities of breathing (principal); R06.02 Shortness of breath

== ENCOUNTER 2023-06-10 01:09 | Emergency (ER) | payer OTHER ==
[~2023-06-10] VITALS: Ht 160 cm; Wt 61.2 kg
[~2023-06-10 01:09] MED LIST changes: +SYNTHROID100 MCG PO
[2023-06-10] MEDS ORDERED: ORAPRED ODT10 MG PO (01:36)
[2023-06-10] MEDS ORDERED: FUROsemide 20 MG TABLET PO STA (02:51)
[2023-06-10] MEDS ORDERED: SODIUM CHLORIDE FOR INHALATION 1 VIAL.NEB IH STA (02:57)
[2023-06-10] MEDS ORDERED: FUROSEMIDE20 MG PO (04:04)
== END 2023-06-10 04:10 ==
LOC: ER 01:09
DX: R53.81 Other malaise (principal); R60.0 Localized edema; Z88.0 Allergy status to penicillin; Z88.1 Allergy status to other antibiotic agents; Z91.018 Allergy to other foods

== ENCOUNTER 2023-06-16 03:48 | Emergency (ER) | payer OTHER ==
[~2023-06-16] VITALS: Ht 152.4 cm; Wt 70.3 kg
[~2023-06-16 03:48] MED LIST changes: +FUROSEMIDE20 MG PO; +ORAPRED ODT10 MG PO
[2023-06-16] MEDS ORDERED: KETOROLAC TROMETHAMINE 60 MG VIAL IM STA (05:18)
[2023-06-16] MEDS ORDERED: OxyCODONE HCL/APAP UD (PERCOCET) PO STA (05:18)
== END 2023-06-16 09:57 | disposition home or self-care (01) ==
LOC: ER 03:48
DX: S70.01XA Contusion of right hip, initial encounter (principal); S70.11XA Contusion of right thigh, initial encounter; W18.39XA Other fall on same level, initial encounter; Y93.89 Activity, other specified; Y92.413 State road as the place of occurrence of the external cause; Y99.9 Unspecified external cause status; M16.11 Unilateral primary osteoarthritis, right hip; Z88.0 Allergy status to penicillin; Z88.8 Allergy status to other drugs, medicaments and biological substances; Z91.010 Allergy to peanuts; M85.89 Other specified disorders of bone density and structure, multiple sites
CPT/HCPCS: 72020; 73502; 73552; 73700; 96372; 99284; J1885

== ENCOUNTER 2023-06-20 12:59 | Outpatient (CLI) | payer OTHER ==
[2023-06-20 14:32] LABS: T4 TOTAL 3.89 UG/DL (4.8-13.9)
[2023-06-20 14:33] LABS: TSH 18.4 uIU/mL (0.358-3.74)
== END 2023-06-20 13:05 | disposition home or self-care (01) ==
LOC: LAB 12:59
DX: E03.9 Hypothyroidism, unspecified (principal); M06.4 Inflammatory polyarthropathy

== ENCOUNTER 2023-06-23 04:07 | Emergency (ER) | payer OTHER ==
[~2023-06-23] VITALS: Ht 160 cm; Wt 61.2 kg
[2023-06-23] MEDS ORDERED: KETOROLAC TROMETHAMINE 60 MG VIAL IM STA (06:31)
[2023-06-23] MEDS ORDERED: OxyCODONE HCL/APAP UD (PERCOCET) PO STA (06:32)
[2023-06-23] MEDS ORDERED: ACETAMINOPHEN 500 MG GEL..CAP PO STA (06:33)
== END 2023-06-23 09:01 | disposition home or self-care (01) ==
LOC: ER 04:07
DX: M25.551 Pain in right hip (principal); Z88.0 Allergy status to penicillin; Z88.8 Allergy status to other drugs, medicaments and biological substances; Z91.010 Allergy to peanuts
CPT/HCPCS: 96372; 99282; J1885

== ENCOUNTER 2023-07-02 09:06 | Outpatient (CLI) | payer OTHER | END 2023-07-02 09:20 | disposition home or self-care (01) | LOC: TOM 09:06 | PROVIDERS: ATTEND Urology | DX: Z91.49 Other personal history of psychological trauma, not elsewhere classified (principal); W17.2XXA Fall into hole, initial encounter; Z88.0 Allergy status to penicillin; Z88.1 Allergy status to other antibiotic agents; Z91.018 Allergy to other foods ==

== ENCOUNTER → 2023-07-02 | Emergency (ER) | payer OTHER ==
[~2023-07-02] VITALS: Ht 160 cm; Wt 61.2 kg
== END | disposition left against medical advice (07) ==
LOC: ER 03:17
DX: Z53.21 Procedure and treatment not carried out due to patient leaving prior to being seen by health care provider (principal)

== ENCOUNTER 2023-07-08 23:19 | Emergency (ER) | payer OTHER ==
[~2023-07-08] VITALS: Ht 160 cm; Wt 61.2 kg
== END 2023-07-09 | disposition left against medical advice (07) ==
LOC: ER 23:19
DX: R06.02 Shortness of breath (principal); S89.82XA Other specified injuries of left lower leg, initial encounter; W19.XXXA Unspecified fall, initial encounter; Y93.89 Activity, other specified; Y92.89 Other specified places as the place of occurrence of the external cause; Z88.0 Allergy status to penicillin; Z88.6 Allergy status to analgesic agent; Z88.8 Allergy status to other drugs, medicaments and biological substances; J45.909 Unspecified asthma, uncomplicated

== ENCOUNTER 2023-08-05 12:46 | Outpatient (CLI) | payer OTHER ==
[2023-08-05 14:22] LABS: HEMATOCRIT 36.5 % (36.0-45.00); HEMOGLOBIN 12.4 g/dL (12.0-15.00); MEAN CELL VOLUME 95.2 fL (80.00-100.00); MEAN CORPUSCULAR HEMOGLOBIN 32.4 pg (27.00-32.0); PLATELET COUNT 229 K/uL (150-450); RED BLOOD COUNT 3.83 M/uL (4.00-6.00); RED CELL DISTRIBUTION WIDTH 14.4 % (11.5-14.5)
[2023-08-05 14:34] LABS: ERYTHROCYTE SEDIMENTATION RATE 18 mm/hr
[2023-08-05 14:40] LABS: URINE APPEARANCE Clear; URINE BILIRRUBIN Negative (NEGATIVE); URINE BLOOD Negative; URINE COLOR Yellow; URINE GLUCOSE Negative (NEGATIVE); URINE LEUKOCYTE Trace; URINE NITRATE Negative; URINE PROTEIN Negative (NEGATIVE)
[2023-08-05 14:44] LABS: URINE BACTERIA 65.5 uL (0.0-1933); URINE EPITHELIAL CELLS 2.6 uL (0.0-38.8); URINE RBC 3.8 uL (0.0-20.8); URINE WBC 4.1 uL (0.0-23.2)
[2023-08-05 15:26] LABS: ALBUMIN 3.5 gm/dL (3.4-5.0); BILIRUBIN TOTAL 0.6 mg/dL (0.3-1.2); CALCIUM 9.6 mg/dL (8.5-10.1); CREATININE SERUM 0.96 mg/dL (0.55-1.02); GFR 56.06; GLOBULINA 3.1 G/DL (2.4-3.5); POTASSIUM 4.38 mEq/L (3.5-5.1); TOTAL PROTEIN 6.6 gm/dL (6.4-8.2)
== END 2023-08-05 12:47 | disposition home or self-care (01) ==
LOC: LAB 12:46
PROVIDERS: ATTEND Urology
DX: N30.00 Acute cystitis without hematuria (principal); R31.0 Gross hematuria; L30.0 Nummular dermatitis

== ENCOUNTER 2023-08-08 11:40 | Outpatient (CLI) | payer OTHER | END 2023-08-08 11:50 | disposition home or self-care (01) | LOC: LAB 11:40 | DX: J30.9 Allergic rhinitis, unspecified (principal) ==

== ENCOUNTER 2023-10-23 12:08 | Outpatient (CLI) | payer OTHER ==
[2023-10-23 13:14] LABS: HEMATOCRIT 36.3 % (36.0-45.00); HEMOGLOBIN 12.6 g/dL (12.0-15.00); MEAN CELL VOLUME 92.9 fL (80.00-100.00); MEAN CORPUSCULAR HEMOGLOBIN 32.2 pg (27.00-32.0); MEAN CORPUSCULAR HGB CONC 34.7 g/dl (32.0-36.0); PLATELET COUNT 259 K/uL (150-450); RED BLOOD COUNT 3.91 M/uL (4.00-6.00); RED CELL DISTRIBUTION WIDTH 14.2 % (11.5-14.5)
[2023-10-23 15:16] LABS: PH,URINE 5.5 (5.0-8.0); URINE APPEARANCE Clear; URINE BILIRRUBIN Negative (NEGATIVE); URINE BLOOD Negative; URINE COLOR Yellow; URINE GLUCOSE Negative (NEGATIVE); URINE LEUKOCYTE Trace; URINE NITRATE Negative; URINE PROTEIN Trace (NEGATIVE)
[2023-10-23 15:20] LABS: URINE BACTERIA 313.6 uL (0.0-1933); URINE EPITHELIAL CELLS 28.5 uL (0.0-38.8); URINE RBC 2.2 uL (0.0-20.8); URINE WBC 24.4 uL (0.0-23.2)
== END 2023-10-23 12:15 | disposition home or self-care (01) ==
LOC: LAB 12:08
PROVIDERS: ATTEND Urology
DX: N30.00 Acute cystitis without hematuria (principal)

== ENCOUNTER 2023-11-05 14:58 | Outpatient (CLI) | payer OTHER ==
[2023-11-05 17:03] LABS: CALCIUM 9.5 mg/dL (8.5-10.1); CREATININE SERUM 0.87 mg/dL (0.55-1.02); GFR 62.65; MAGNESIUM 2.3 mg/dL (1.8-2.4); POTASSIUM 3.49 mEq/L (3.5-5.1)
[2023-11-05 17:29] LABS: URINE APPEARANCE Cloudy; URINE BILIRRUBIN Negative (NEGATIVE); URINE BLOOD Negative; URINE COLOR Yellow; URINE GLUCOSE Negative (NEGATIVE); URINE LEUKOCYTE Moderate; URINE NITRATE Positive; URINE PROTEIN Negative (NEGATIVE)
[2023-11-05 17:33] LABS: URINE EPITHELIAL CELLS 24.7 uL (0.0-38.8); URINE RBC 2.4 uL (0.0-20.8); URINE WBC 376.4 uL (0.0-23.2)
[2023-11-05 17:56] LABS: URINE BACTERIA > 9821.5 uL (0.0-1933)
[2023-11-06 10:42] LABS: VITAMIN D3 25 HYDROXY 46.25 ng/ml (30-120)
[2023-11-13 13:12] LABS: VITAMIN C 0.5 mg/dL (0.4-2.0)
== END 2023-11-05 23:00 | disposition home or self-care (01) ==
LOC: LAB 14:58
PROVIDERS: ATTEND Urology
DX: N31.1 Reflex neuropathic bladder, not elsewhere classified (principal); D51.1 Vitamin B12 deficiency anemia due to selective vitamin B12 malabsorption with proteinuria; E55.9 Vitamin D deficiency, unspecified; R19.7 Diarrhea, unspecified; N30.00 Acute cystitis without hematuria

== ENCOUNTER 2023-11-10 11:45 | Outpatient (CLI) | payer OTHER | END 2023-11-10 11:47 | disposition home or self-care (01) | LOC: LAB 11:45 | PROVIDERS: ATTEND Urology | DX: R19.7 Diarrhea, unspecified (principal) ==

== ENCOUNTER 2023-11-11 10:34 | Outpatient (CLI) | payer OTHER | END 2023-11-11 10:50 | disposition home or self-care (01) | LOC: RAD 10:34 | PROVIDERS: ATTEND Urology | DX: N30.00 Acute cystitis without hematuria (principal); M25.712 Osteophyte, left shoulder; M67.3 Transient synovitis ==

== ENCOUNTER 2023-11-12 21:40 | Inpatient (IN) | payer OTHER ==
[~2023-11-12] VITALS: Ht 157.5 cm; Wt 61.2 kg
--- NOTE | 2023-11-12 21:58 | NUR ---
SE RECIBE PTE ALERTA Y ORIENTADA LA CUAL REFIERE VENIR POR TRAUMA EN LA TARDE DE HOY. SE MIDEN S/V A PTE Y SE UBICA.
[2023-11-12] MEDS ORDERED: KETOROLAC TROMETHAMINE 60 MG VIAL IM ONE ×2 (22:30→22:35)
[2023-11-12] MEDS ORDERED: LEVALBUTEROL HCL 0.63 MG/3 ML SOLUTION IH ONE ×2 (22:30→23:46)
--- NOTE | 2023-11-12 22:44 | NUR ---
PACIENTE EVALUADA POR QUIEN ORDENA TRATAMIENTO MEDICO, SE LE ORIENTA A PACIENTE SOBRE EL MISMO Y VERBALIZA ENTENDER, SE LE ADMINSITRAN MEDICAMENTOS SANDRO ORDEN.
--- NOTE | 2023-11-12 23:50 | NUR ---
PTE ALERTA Y ORIENTADA X3, SE VETO SV Y SE DOCUMENTA EN SISTEMA, SE NOTIFICAN TERAPIAS PENDIENTES. PENDIENTE CONSULTA CON TRABAJO SOCIAL.
--- NOTE | 2023-11-13 07:17 | NUR ---
SE RECIBE PACIENTE ALERTA Y ORIENTADA AL MOMENTO EN [place] EN REPOSO. PENDIENTE CONSULTA CON TRABAJO SOCIAL.
[2023-11-13] MEDS ORDERED: FAMOTIDINE/PF 20 MG in 0.9 % SODIUM CHLORIDE 100 ML IV SCH (10:00)
[2023-11-13] MEDS ORDERED: 0.9 % SODIUM CHLORIDE 1,000 ML IV SCH (10:00)
[2023-11-13] MEDS ORDERED: KETOROLAC TROMETHAMINE 30 MG VIAL IM PRN (10:15)
[2023-11-13 10:51] LABS: HEMATOCRIT 35.1 % (36.0-45.00); HEMOGLOBIN 12.1 g/dL (12.0-15.00); MEAN CELL VOLUME 92.1 fL (80.00-100.00); MEAN CORPUSCULAR HEMOGLOBIN 31.8 pg (27.00-32.0); MEAN CORPUSCULAR HGB CONC 34.5 g/dl (32.0-36.0); PLATELET COUNT 215 K/uL (150-450); RED BLOOD COUNT 3.81 M/uL (4.00-6.00); RED CELL DISTRIBUTION WIDTH 14.9 % (11.5-14.5)
[2023-11-13 11:15] LABS: INR 1.08; PARTIAL THROMBOPLASTIN TIME 26.9 SECONDS (22.0-34.0); PROTHROMBIN TIME 11.3 SECONDS (9.0-11.5)
[2023-11-13] MEDS ORDERED: FAMOtidine 200mg/20ml VIAL ONE (11:25)
[2023-11-13 11:34] LABS: CREATININE SERUM 0.83 mg/dL (0.55-1.02); GFR 66.14; POTASSIUM 3.88 mEq/L (3.5-5.1)
[2023-11-13 11:57] LABS: PH,URINE 6.5 (5.0-8.0); URINE APPEARANCE Clear; URINE BILIRRUBIN Negative (NEGATIVE); URINE BLOOD Negative; URINE COLOR Yellow; URINE GLUCOSE Negative (NEGATIVE); URINE KETONE Negative (NEGATIVE); URINE LEUKOCYTE Small; URINE NITRATE Negative; URINE PROTEIN Negative (NEGATIVE); URINE UROBILINOGEN 0.2 E.U./dl
[2023-11-13 11:58] LABS: URINE BACTERIA 89.4 uL (0.0-1933); URINE EPITHELIAL CELLS 11.5 uL (0.0-38.8); URINE RBC 9.7 uL (0.0-20.8); URINE WBC 37.8 uL (0.0-23.2)
[2023-11-14] MEDS ORDERED: LEVOTHYROXINE SODIUM 100 MCG TABLET PO SCH (06:00)
[2023-11-14] MEDS ORDERED: ENOXAPARIN SODIUM 40 MG/0.4 ML SYRINGE SUBCUTANEO SCH ×2 (09:00→21:00)
[2023-11-14] MEDS ORDERED: LEVALBUTEROL HCL 1.25 MG/3 ML SOLUTION IH SCH (09:00)
[2023-11-14] MEDS ORDERED: ENOXAPARIN SODIUM 40 MG/0.4 ML SYRINGE SUBCUTANEO STA (15:45)
[2023-11-14 17:28] LABS: ABG PH 7.478 (7.35-7.45); ABG PO2 96.7 mmHg (80-100); ABG pCO2 29.8 mmHg (35-45); BASE EXCESS -0.7 mmol/l; BICARBONATE 21.6 mmol/l (23-25); Tco2 22.5 mmol/l
[2023-11-14 17:31] LABS: allen test SATISFACTORY; o2 40 %; puncture site RADIAL RIGHT
[2023-11-15] MEDS ORDERED: ENOXAPARIN SODIUM 60 MG/0.6 ML SYRINGE SUBCUTANEO SCH ×3 (09:00→21:00)
[2023-11-15] MEDS ORDERED: ENALAPRILAT DIHYDRATE 1.25 MG/ML VIAL IV PRN (10:30)
[2023-11-15] MEDS ORDERED: ENOXAPARIN SODIUM 60 MG/0.6 ML SYRINGE SUBCUTANEO ONE (18:49)
[2023-11-16 07:21] LABS: HEMATOCRIT 32.5 % (36.0-45.00); HEMOGLOBIN 11.4 g/dL (12.0-15.00); MEAN CELL VOLUME 90.7 fL (80.00-100.00); MEAN CORPUSCULAR HGB CONC 35.2 g/dl (32.0-36.0); PLATELET COUNT 210 K/uL (150-450); RED BLOOD COUNT 3.58 M/uL (4.00-6.00); RED CELL DISTRIBUTION WIDTH 14.4 % (11.5-14.5)
[2023-11-16 08:22] LABS: ALBUMIN 2.7 gm/dL (3.4-5.0); BILIRUBIN TOTAL 0.86 mg/dL (0.3-1.2); CALCIUM 7.9 mg/dL (8.5-10.1); CREATININE SERUM 0.66 mg/dL (0.55-1.02); GFR 86.17; GLOBULINA 2.5 G/DL (2.4-3.5); POTASSIUM 4.56 mEq/L (3.5-5.1); TOTAL PROTEIN 5.2 gm/dL (6.4-8.2)
[2023-11-16 13:14] LABS: ABG PH 7.484 (7.35-7.45); ABG pCO2 29.6 mmHg (35-45)
[2023-11-16 13:15] LABS: ABG PO2 50.6 mmHg (80-100); BASE EXCESS -0.4 mmol/l; BICARBONATE 21.8 mmol/l (23-25); SaO2 88.5 %; Tco2 22.7 mmol/l; o2 21 %
[2023-11-16 13:16] LABS: allen test SATISFACTORY; puncture site RADIAL RIGHT
[2023-11-17] MEDS ORDERED: AZITHROMYCIN 500 MG in 0.9 % SODIUM CHLORIDE 250 ML IV SCH (09:41)
[2023-11-17] MEDS ORDERED: FF) Daptomycin 500 MG/VIAL IV SCH (10:00)
[2023-11-17] MEDS ORDERED: SODIUM CHLORIDE 0.45 % 1,000 ML IV SCH (16:15)
[2023-11-17] MEDS ORDERED: KETOROLAC TROMETHAMINE 30 MG VIAL ONE (18:07)
[2023-11-18 08:06] LABS: HEMATOCRIT 25.5 % (36.0-45.00); MEAN CELL VOLUME 89.2 fL (80.00-100.00); MEAN CORPUSCULAR HGB CONC 35.7 g/dl (32.0-36.0); PLATELET COUNT 186 K/uL (150-450); RED BLOOD COUNT 2.86 M/uL (4.00-6.00); RED CELL DISTRIBUTION WIDTH 14.6 % (11.5-14.5)
[2023-11-18] MEDS ORDERED: RIVAROXABAN 10 MG TAB PO SCH (09:00)
[2023-11-18 09:12] LABS: MEAN CORPUSCULAR HEMOGLOBIN 31.8 pg (27.00-32.0)
[2023-11-18 09:13] LABS: HEMOGLOBIN 9.1 g/dL (12.0-15.00)
[2023-11-18] MEDS ORDERED: (FF) Daptomycin 50 MG/ML IV NR (10:00)
[2023-11-18 14:32] LABS: ABG PH 7.465 (7.35-7.45)
[2023-11-18 14:33] LABS: BASE EXCESS -0.8 mmol/l; BICARBONATE 21.8 mmol/l (23-25); SaO2 85.3 %; Tco2 22.8 mmol/l; allen test SATISFACTORY; o2 21 %; puncture site RADIAL RIGHT
[2023-11-18] MEDS ORDERED: KETOROLAC TROMETHAMINE 30 MG VIAL IM PRN (15:45)
[2023-11-19 08:37] LABS: MEAN CELL VOLUME 88.8 fL (80.00-100.00); MEAN CORPUSCULAR HGB CONC 35.9 g/dl (32.0-36.0); PLATELET COUNT 167 K/uL (150-450); RED BLOOD COUNT 2.53 M/uL (4.00-6.00); RED CELL DISTRIBUTION WIDTH 14.4 % (11.5-14.5)
[2023-11-19] MEDS ORDERED: RIVAROXABAN 15 MG TABLET PO SCH (09:00)
[2023-11-19 10:14] LABS: HEMATOCRIT 22.5 % (36.0-45.00)
[2023-11-19 11:04] LABS: HEMOGLOBIN 8.1 g/dL (12.0-15.00)
[2023-11-20] MEDS ORDERED: FAMOTIDINE/PF 20 MG/2 ML VIAL IV NR (12:15)
[2023-11-20] MEDS ORDERED: FAMOTIDINE/PF 20 MG/2 ML VIAL IV SCH (21:00)
[2023-11-21 03:07] LABS: MEAN CELL VOLUME 88.6 fL (80.00-100.00); MEAN CORPUSCULAR HEMOGLOBIN 31.2 pg (27.00-32.0); MEAN CORPUSCULAR HGB CONC 35.5 g/dl (32.0-36.0); PLATELET COUNT 210 K/uL (150-450); RED BLOOD COUNT 2.72 M/uL (4.00-6.00); RED CELL DISTRIBUTION WIDTH 14.5 % (11.5-14.5)
[2023-11-21 03:08] LABS: HEMATOCRIT 24.1 % (36.0-45.00); HEMOGLOBIN 8.5 g/dL (12.0-15.00)
[2023-11-21] MEDS ORDERED: DIPHENHYDRAMINE HCL 50 MG/ML VIAL 1ML IV SCH (14:15)
[2023-11-22 02:27] LABS: HEMATOCRIT 28.6 % (36.0-45.00); HEMOGLOBIN 10.1 g/dL (12.0-15.00); MEAN CELL VOLUME 87.3 fL (80.00-100.00); MEAN CORPUSCULAR HEMOGLOBIN 30.8 pg (27.00-32.0); MEAN CORPUSCULAR HGB CONC 35.3 g/dl (32.0-36.0); PLATELET COUNT 224 K/uL (150-450); RED BLOOD COUNT 3.28 M/uL (4.00-6.00); RED CELL DISTRIBUTION WIDTH 14.4 % (11.5-14.5)
[2023-11-23 13:16] LABS: ABG PH 7.467 (7.35-7.45); ABG pCO2 32.8 mmHg (35-45); BASE EXCESS 0.3 mmol/l; BICARBONATE 23.2 mmol/l (23-25); SaO2 94.9 %; Tco2 24.2 mmol/l; allen test SATISFACTORY; o2 21 %; puncture site RADIAL RIGHT
[2023-11-24 10:45] LABS: HEMATOCRIT 29.3 % (36.0-45.00); HEMOGLOBIN 10.1 g/dL (12.0-15.00); MEAN CELL VOLUME 87.3 fL (80.00-100.00); MEAN CORPUSCULAR HEMOGLOBIN 30.1 pg (27.00-32.0); MEAN CORPUSCULAR HGB CONC 34.5 g/dl (32.0-36.0); PLATELET COUNT 326 K/uL (150-450); RED BLOOD COUNT 3.36 M/uL (4.00-6.00); RED CELL DISTRIBUTION WIDTH 14.7 % (11.5-14.5)
[2023-11-24 11:50] LABS: ALBUMIN 2.2 gm/dL (3.4-5.0); BILIRUBIN TOTAL 1.28 mg/dL (0.3-1.2); CALCIUM 8.2 mg/dL (8.5-10.1); CREATININE SERUM 0.49 mg/dL (0.55-1.02); GFR 121.51; POTASSIUM 4.23 mEq/L (3.5-5.1); TOTAL PROTEIN 5.2 gm/dL (6.4-8.2)
[2023-11-24] MEDS ORDERED: KETOROLAC TROMETHAMINE 30 MG VIAL IM PRN (20:45)
[2023-11-25 10:54] LABS: PH,URINE 5.5 (5.0-8.0); URINE APPEARANCE Turbid; URINE BILIRRUBIN Small (NEGATIVE); URINE BLOOD Moderate; URINE COLOR Orange; URINE GLUCOSE Negative (NEGATIVE); URINE KETONE Negative (NEGATIVE); URINE LEUKOCYTE Large; URINE NITRATE Positive; URINE PROTEIN 30 (NEGATIVE)
[2023-11-25 10:59] LABS: URINE CAST 7.75 uL (0.0-1.40); URINE EPITHELIAL CELLS 11.9 uL (0.0-38.8); URINE RBC 476.1 uL (0.0-20.8); URINE WBC 2568.8 uL (0.0-23.2)
[2023-11-25 11:06] LABS: HEMATOCRIT 28.6 % (36.0-45.00); HEMOGLOBIN 9.9 g/dL (12.0-15.00); MEAN CORPUSCULAR HEMOGLOBIN 30.3 pg (27.00-32.0); MEAN CORPUSCULAR HGB CONC 34.4 g/dl (32.0-36.0); PLATELET COUNT 385 K/uL (150-450); RED BLOOD COUNT 3.25 M/uL (4.00-6.00); RED CELL DISTRIBUTION WIDTH 14.8 % (11.5-14.5)
[2023-11-25 11:17] LABS: URINE BACTERIA > 9821.5 uL (0.0-1933); URINE YEAST FEW /hpf
[2023-11-26] MEDS ORDERED: AMIKACIN SULFATE 250 MG/ML (500MG) VIAL IV ONE (21:00)
[2023-11-26] MEDS ORDERED: DIPHENHYDRAMINE HCL 50 MG CAPSULE PO STA (22:01)
[2023-11-26] MEDS ORDERED: DIPHENHYDRAMINE HCL 50 MG CAPSULE PO PRN (22:15)
[2023-11-27 11:21] LABS: HEMATOCRIT 27.5 % (36.0-45.00); MEAN CELL VOLUME 87.1 fL (80.00-100.00); MEAN CORPUSCULAR HEMOGLOBIN 31.8 pg (27.00-32.0); MEAN CORPUSCULAR HGB CONC 36.4 g/dl (32.0-36.0); PLATELET COUNT 444 K/uL (150-450); RED BLOOD COUNT 3.15 M/uL (4.00-6.00); RED CELL DISTRIBUTION WIDTH 14.5 % (11.5-14.5)
[2023-11-27 15:10] LABS: PH,URINE 5.5 (5.0-8.0); URINE APPEARANCE Clear; URINE BILIRRUBIN Negative (NEGATIVE); URINE COLOR Yellow; URINE GLUCOSE Negative (NEGATIVE); URINE KETONE Negative (NEGATIVE); URINE LEUKOCYTE Moderate; URINE NITRATE Positive; URINE PROTEIN Negative (NEGATIVE)
[2023-11-27 15:13] LABS: URINE BACTERIA 3852.8 uL (0.0-1933); URINE RBC 115.2 uL (0.0-20.8); URINE WBC 129.2 uL (0.0-23.2)
[2023-11-27 15:46] LABS: URINE BLOOD TRACE; URINE CAST 0.76 uL (0.0-1.40)
[2023-11-28] MEDS ORDERED: LACTOBACILLUS REUTERI PO SCH (17:05)
[2023-11-28] MEDS ORDERED: 0.9 % SODIUM CHLORIDE 1,000 ML IV SCH (17:09)
[2023-11-28] MEDS ORDERED: FAMOtidine 20 MG TABLET PO SCH (17:13)
[2023-11-28] MEDS ORDERED: ORPHENADRINE CITRATE 100 MG TABLET PO SCH (17:15)
[2023-11-28] MEDS ORDERED: GENTAMICIN SULFATE 40 MG/ML VIAL IV SCH (17:15)
[2023-11-28] MEDS ORDERED: FAMOTIDINE/PF 20 MG/2 ML VIAL IV SCH (17:30)
[2023-11-28] MEDS ORDERED: ORPHENADRINE CITRATE 30 MG/ML AMPUL IV SCH (17:30)
[2023-11-28] MEDS ORDERED: LACTOBACILLUS ACIDOPHILUS 1 CAP CAP PO ONE (18:08)
[2023-11-28 21:06] LABS: HEMATOCRIT 29.9 % (36.0-45.00); HEMOGLOBIN 10.5 g/dL (12.0-15.00); MEAN CORPUSCULAR HEMOGLOBIN 31.2 pg (27.00-32.0); MEAN CORPUSCULAR HGB CONC 35.1 g/dl (32.0-36.0); PLATELET COUNT 531 K/uL (150-450); RED BLOOD COUNT 3.36 M/uL (4.00-6.00); RED CELL DISTRIBUTION WIDTH 14.2 % (11.5-14.5)
[2023-11-28 21:53] LABS: CALCIUM 8.8 mg/dL (8.5-10.1); CREATININE SERUM 0.58 mg/dL (0.55-1.02); GFR 100.02; POTASSIUM 4.49 mEq/L (3.5-5.1)
[2023-11-28] MEDS ORDERED: KETOROLAC TROMETHAMINE 30 MG VIAL IV PRN (23:00)
[2023-11-29] MEDS ORDERED: LACTOBACILLUS ACIDOPHILUS 1 CAP CAP PO SCH (09:00)
[2023-11-29] MEDS ORDERED: FUROsemide 20 MG/2 ML VIAL IV STA (14:27)
[2023-11-29] MEDS ORDERED: GENTAMICIN SULFATE 2.5 MG/ML (Adulto) IV SCH (17:00)
[2023-11-30] MEDS ORDERED: GENTAMICIN SULFATE 40 MG/ML VIAL IM STA (16:56)
[2023-12-01] MEDS ORDERED: GENTAMICIN SULFATE 2.5 MG/ML (Adulto) IV SCH (09:00)
[2023-12-01 10:16] LABS: CALCIUM 8.4 mg/dL (8.5-10.1); CREATININE SERUM 0.46 mg/dL (0.55-1.02); GFR 130.7; POTASSIUM 4.52 mEq/L (3.5-5.1)
[2023-12-01] MEDS ORDERED: IPRATROPIUM BROMIDE 0.5 MG/2.5 ML AMPUL.NEB IH SCH (12:00)
[2023-12-01 14:41] LABS: PH,URINE 5.5 (5.0-8.0); URINE APPEARANCE Clear; URINE BILIRRUBIN Negative (NEGATIVE); URINE BLOOD Negative; URINE COLOR Yellow; URINE GLUCOSE Negative (NEGATIVE); URINE KETONE Negative (NEGATIVE); URINE LEUKOCYTE Trace; URINE NITRATE Negative; URINE PROTEIN Negative (NEGATIVE)
[2023-12-01 14:42] LABS: URINE BACTERIA 51.6 uL (0.0-1933); URINE CAST 3.35 uL (0.0-1.40); URINE EPITHELIAL CELLS 5.5 uL (0.0-38.8); URINE RBC 134.3 uL (0.0-20.8); URINE WBC 56.2 uL (0.0-23.2)
[2023-12-01 14:56] LABS: URINE CRYSTALS FEW /HPF; URINE MUCUS SCANT; URINE YEAST MODERATE /hpf
[2023-12-01] MEDS ORDERED: ALPRAzolam 0.25 MG TABLET PO SCH (21:00)
[2023-12-02] MEDS ORDERED: FAMOtidine 20 MG TABLET PO SCH (17:00)
== END 2023-12-02 13:25 | DRG 521 ==
LOC: ER 21:40 → SURH 11-13 10:54
PROVIDERS: General Practice; Internal Medicine; Internal Medicine Critical Care Medicine; Orthopaedic Surgery; Urology; ADMIT Internal Medicine; ATTEND Internal Medicine
PROC: BQ2SZZZ Computerized Tomography (CT Scan) of Left Lower Extremity (ICD-10-PCS; 2023-11-13)
PROC: BQ2RZZZ Computerized Tomography (CT Scan) of Right Lower Extremity (ICD-10-PCS; 2023-11-13)
PROC: B54DZZZ Ultrasonography of Bilateral Lower Extremity Veins (ICD-10-PCS; 2023-11-13)
PROC: CB121ZZ Planar Nuclear Medicine Imaging of Lungs and Bronchi using Technetium 99m (Tc-99m) (ICD-10-PCS; 2023-11-14)
PROC: 3E0F7GC Introduction of Other Therapeutic Substance into Respiratory Tract, Via Natural or Artificial Opening (ICD-10-PCS; 2023-11-14)
PROC: B246ZZZ Ultrasonography of Right and Left Heart (ICD-10-PCS; 2023-11-15)
PROC: BB24ZZZ Computerized Tomography (CT Scan) of Bilateral Lungs (ICD-10-PCS; 2023-11-17)
PROC: 0SRS0JZ Replacement of Left Hip Joint, Femoral Surface with Synthetic Substitute, Open Approach (ICD-10-PCS; principal; 2023-11-17 07:00)
PROC: 30233N1 Transfusion of Nonautologous Red Blood Cells into Peripheral Vein, Percutaneous Approach (ICD-10-PCS; 2023-11-20)
DX: S72.092A Other fracture of head and neck of left femur, initial encounter for closed fracture (principal); I26.99 Other pulmonary embolism without acute cor pulmonale; M80.052A Age-related osteoporosis with current pathological fracture, left femur, initial encounter for fracture; B44.81 Allergic bronchopulmonary aspergillosis; N30.00 Acute cystitis without hematuria; B37.41 Candidal cystitis and urethritis; J45.40 Moderate persistent asthma, uncomplicated; D64.89 Other specified anemias; W01.0XXA Fall on same level from slipping, tripping and stumbling without subsequent striking against object, initial encounter; Y93.9 Activity, unspecified; Y92.9 Unspecified place or not applicable; Y99.9 Unspecified external cause status; E03.9 Hypothyroidism, unspecified; R09.02 Hypoxemia; Z88.1 Allergy status to other antibiotic agents; Z91.010 Allergy to peanuts; Z88.0 Allergy status to penicillin; Z91.013 Allergy to seafood; Z91.018 Allergy to other foods; B96.20 Unspecified Escherichia coli [E. coli] as the cause of diseases classified elsewhere

== ENCOUNTER 2024-01-03 16:12 | Inpatient (IN) | payer OTHER ==
[~2024-01-03] VITALS: Ht 160 cm; Wt 56.7 kg
[2024-01-03 18:43] LABS: HEMATOCRIT 29.3 % (36.0-45.00); MEAN CELL VOLUME 90.6 fL (80.00-100.00); MEAN CORPUSCULAR HGB CONC 34.2 g/dl (32.0-36.0); PLATELET COUNT 357 K/uL (150-450); RED BLOOD COUNT 3.24 M/uL (4.00-6.00); RED CELL DISTRIBUTION WIDTH 15.9 % (11.5-14.5)
[2024-01-03 18:55] LABS: INR 1.06; PARTIAL THROMBOPLASTIN TIME 29.2 SECONDS (22.0-34.0); PROTHROMBIN TIME 11.5 SECONDS (9.0-11.5)
[2024-01-03 18:59] LABS: ALBUMIN 3.7 gm/dL (3.4-5.0); BILIRUBIN TOTAL 0.99 mg/dL (0.3-1.2); CALCIUM 9.1 mg/dL (8.5-10.1); CREATININE SERUM 0.57 mg/dL (0.55-1.02); GFR 102.05; GLOBULINA 3.4 G/DL (2.4-3.5); POTASSIUM 3.72 mEq/L (3.5-5.1); TOTAL PROTEIN 7.1 gm/dL (6.4-8.2)
[2024-01-03 19:11] LABS: URINE APPEARANCE Turbid; URINE BILIRRUBIN Negative (NEGATIVE); URINE BLOOD Small; URINE COLOR Dark Yellow; URINE GLUCOSE Negative (NEGATIVE); URINE KETONE Negative (NEGATIVE); URINE LEUKOCYTE Large; URINE NITRATE Negative; URINE PROTEIN Trace (NEGATIVE); URINE UROBILINOGEN 0.2 E.U./dl
[2024-01-03 19:18] LABS: URINE BACTERIA 6262.1 uL (0.0-1933); URINE CAST 4.73 uL (0.0-1.40); URINE EPITHELIAL CELLS 42.2 uL (0.0-38.8); URINE RBC 30.3 uL (0.0-20.8); URINE WBC 2667.2 uL (0.0-23.2)
[2024-01-03] MEDS ORDERED: 0.9 % SODIUM CHLORIDE 1,000 ML IV SCH (21:45)
[2024-01-03] MEDS ORDERED: ACETAMINOPHEN 500 MG GEL..CAP PO PRN (22:00)
[2024-01-04] MEDS ORDERED: AZTREONAM 1,000 MG in 0.9 % SODIUM CHLORIDE 50 ML IV SCH (01:00)
[2024-01-04] MEDS ORDERED: LEVOTHYROXINE SODIUM 100 MCG TABLET PO SCH (06:00)
[2024-01-04] MEDS ORDERED: FAMOTIDINE/PF 20 MG/2 ML VIAL ONE (08:33)
[2024-01-04 08:37] VITALS: BP 118/73; O2SAT 95
[2024-01-04] MEDS ORDERED: FAMOTIDINE/PF 20 MG in 0.9 % SODIUM CHLORIDE 8 ML IV PUSH SCH (09:00)
[2024-01-04 09:02] LABS: INR 1.06; PARTIAL THROMBOPLASTIN TIME 26.6 SECONDS (22.0-34.0); PROTHROMBIN TIME 11.5 SECONDS (9.0-11.5)
[2024-01-04] MEDS ORDERED: ALBUTEROL SULFATE 1.25 MG/3 ML AMPUL.NEB IH NR (14:30)
[2024-01-04] MEDS ORDERED: GENTAMICIN SULFATE/PF 10 MG/ML VIAL IV SCH (17:00)
[2024-01-04] MEDS ORDERED: MONTELUKAST SODIUM 10 MG TABLET PO SCH (17:00)
[2024-01-04 17:21] VITALS: BP 138/85; O2SAT 98
[2024-01-04] MEDS ORDERED: ALBUTEROL SULFATE 1.25 MG/3 ML AMPUL.NEB IH SCH (21:00)
[2024-01-05 02:18] VITALS: BP 148/85; O2SAT 97
[2024-01-05 08:59] VITALS: BP 113/65; O2SAT 96
[2024-01-05] MEDS ORDERED: FAMOTIDINE/PF 20 MG/2 ML VIAL ONE (09:30)
[2024-01-05] MEDS ORDERED: ENOXAPARIN SODIUM 40 MG/0.4 ML SYRINGE SUBCUTANEO SCH (13:59)
[2024-01-05 15:10] VITALS: BP 134/82; O2SAT 93
[2024-01-05] MEDS ORDERED: ORPHENADRINE CITRATE 100 MG TABLET PO SCH (17:00)
[2024-01-05] MEDS ORDERED: GENTAMICIN SULFATE 2.5 MG/ML (Adulto) IV SCH (17:00)
[2024-01-05] MEDS ORDERED: TAMSULOSIN HCL 0.4 MG CAP PO SCH (21:00)
[2024-01-06 02:00] VITALS: BP 135/75; O2SAT 96
[2024-01-06 07:27] VITALS: BP 166/75; O2SAT 96
[2024-01-06] MEDS ORDERED: FAMOTIDINE/PF 20 MG/2 ML VIAL ONE (08:04)
[2024-01-06] MEDS ORDERED: GENTAMICIN SULFATE 2.5 MG/ML (Adulto) IV SCH (09:00)
[2024-01-06 14:13] LABS: HEMATOCRIT 27.4 % (36.0-45.00); HEMOGLOBIN 9.3 g/dL (12.0-15.00); MEAN CELL VOLUME 92.8 fL (80.00-100.00); MEAN CORPUSCULAR HEMOGLOBIN 31.5 pg (27.00-32.0); MEAN CORPUSCULAR HGB CONC 33.9 g/dl (32.0-36.0); PLATELET COUNT 345 K/uL (150-450); RED BLOOD COUNT 2.95 M/uL (4.00-6.00); RED CELL DISTRIBUTION WIDTH 16.5 % (11.5-14.5)
[2024-01-06 14:51] LABS: ALBUMIN 3.3 gm/dL (3.4-5.0); BILIRUBIN TOTAL 0.7 mg/dL (0.3-1.2); CALCIUM 8.6 mg/dL (8.5-10.1); CREATININE SERUM 0.58 mg/dL (0.55-1.02); GFR 100.02; GLOBULINA 2.9 G/DL (2.4-3.5); POTASSIUM 3.29 mEq/L (3.5-5.1); TOTAL PROTEIN 6.2 gm/dL (6.4-8.2)
[2024-01-06 20:23] VITALS: BP 134/80; O2SAT 96
[2024-01-06] MEDS ORDERED: PHENAZOPYRIDINE HCL 100 MG TABLET PO SCH (22:19)
[2024-01-06] MEDS ORDERED: DIPHENHYDRAMINE HCL 50 MG/ML VIAL 1ML IV PRN (22:30)
[2024-01-07 01:34] VITALS: BP 110/70
[2024-01-07] MEDS ORDERED: FAMOTIDINE/PF 20 MG/2 ML VIAL ONE (08:22)
[2024-01-07] MEDS ORDERED: DIPHENHYDRAMINE HCL 50 MG/ML VIAL 1ML IV SCH (09:00)
[2024-01-07 10:11] VITALS: BP 163/87
[2024-01-07] MEDS ORDERED: POTASSIUM BICARBONATE/CIT AC 25 MEQ TABLET.EFF PO STA (11:49)
[2024-01-07] MEDS ORDERED: ZANAFLEX PO PRN (17:00)
[2024-01-07 18:20] VITALS: BP 141/72
[2024-01-08] MEDS ORDERED: ALBUTEROL SULFATE 1.25 MG/3 ML AMPUL.NEB IH SCH ×2 (01:00→09:00)
[2024-01-08 02:05] VITALS: BP 105/69; O2SAT 96
[2024-01-08 08:23] LABS: HEMATOCRIT 27.2 % (36.0-45.00); HEMOGLOBIN 9.3 g/dL (12.0-15.00); MEAN CELL VOLUME 94.1 fL (80.00-100.00); PLATELET COUNT 330 K/uL (150-450); RED BLOOD COUNT 2.89 M/uL (4.00-6.00); RED CELL DISTRIBUTION WIDTH 17.1 % (11.5-14.5)
[2024-01-08] MEDS ORDERED: FAMOTIDINE/PF 20 MG/2 ML VIAL ONE (08:36)
[2024-01-08 09:17] VITALS: BP 137/80; O2SAT 93
[2024-01-08 09:31] LABS: ALBUMIN 3.3 gm/dL (3.4-5.0); BILIRUBIN TOTAL 0.71 mg/dL (0.3-1.2); CALCIUM 8.7 mg/dL (8.5-10.1); CREATININE SERUM 0.66 mg/dL (0.55-1.02); GFR 86.17; GLOBULINA 2.9 G/DL (2.4-3.5); POTASSIUM 3.58 mEq/L (3.5-5.1); TOTAL PROTEIN 6.2 gm/dL (6.4-8.2)
== END 2024-01-08 14:49 | disposition home or self-care (01) | DRG 700 ==
LOC: ER 16:12 → MEDJ 21:50
PROVIDERS: General Practice; ADMIT Internal Medicine; ATTEND Internal Medicine
PROC: 0TPBX0Z Removal of Drainage Device from Bladder, External Approach (ICD-10-PCS; principal; 2024-01-04)
PROC: 3E0F7GC Introduction of Other Therapeutic Substance into Respiratory Tract, Via Natural or Artificial Opening (ICD-10-PCS; 2024-01-04)
PROC: 0T9B70Z Drainage of Bladder with Drainage Device, Via Natural or Artificial Opening (ICD-10-PCS; 2024-01-05)
DX: T83.511A Infection and inflammatory reaction due to indwelling urethral catheter, initial encounter (principal); N39.0 Urinary tract infection, site not specified; D64.89 Other specified anemias; R33.8 Other retention of urine; E87.6 Hypokalemia; J45.998 Other asthma; E03.9 Hypothyroidism, unspecified; Z88.0 Allergy status to penicillin; Z91.018 Allergy to other foods; Z91.013 Allergy to seafood; Z96.642 Presence of left artificial hip joint

== ENCOUNTER 2024-03-05 02:09 | Emergency (ER) | payer OTHER ==
[~2024-03-05] VITALS: Ht 160 cm; Wt 54.4 kg
[2024-03-05] MEDS ORDERED: PEPCID AC20 MG (03:01)
[2024-03-05] MEDS ORDERED: KETOROLAC TROMETHAMINE 60 MG VIAL IM STA (05:09)
[2024-03-05] MEDS ORDERED: VOLTAREN ARTHRI20 GM TOP (07:58)
[2024-03-05] MEDS ORDERED: REFRESH LIQUIGE15 ML OPHT ×3 (07:59→08:00)
== END 2024-03-05 09:01 ==
LOC: ER 02:11
DX: S73.101A Unspecified sprain of right hip, initial encounter (principal); M25.561 Pain in right knee; Z91.013 Allergy to seafood; Z88.0 Allergy status to penicillin; Z91.041 Radiographic dye allergy status; Z91.018 Allergy to other foods; J45.909 Unspecified asthma, uncomplicated; E05.80 Other thyrotoxicosis without thyrotoxic crisis or storm
CPT/HCPCS: 73503; 73560; 96372; 99283; J1885

== ENCOUNTER 2024-03-05 10:39 | Outpatient (CLI) | payer OTHER ==
[~2024-03-05 10:39] MED LIST changes: +PEPCID AC20 MG; +REFRESH LIQUIGE15 ML OPHT; +VOLTAREN ARTHRI20 GM TOP
[2024-03-05 12:27] LABS: HEMATOCRIT 39.8 % (36.0-45.00); HEMOGLOBIN 13.3 g/dL (12.0-15.00); MEAN CELL VOLUME 94.5 fL (80.00-100.00); MEAN CORPUSCULAR HEMOGLOBIN 31.5 pg (27.00-32.0); MEAN CORPUSCULAR HGB CONC 33.4 g/dl (32.0-36.0); PLATELET COUNT 283 K/uL (150-450); RED BLOOD COUNT 4.21 M/uL (4.00-6.00); RED CELL DISTRIBUTION WIDTH 14.5 % (11.5-14.5)
[2024-03-05 12:43] LABS: ALBUMIN 3.8 gm/dL (3.4-5.0); BILIRUBIN TOTAL 0.61 mg/dL (0.3-1.2); CALCIUM 9.8 mg/dL (8.5-10.1); CREATININE SERUM 1.05 mg/dL (0.55-1.02); GFR 50.43; GLOBULINA 3.3 G/DL (2.4-3.5); POTASSIUM 4.05 mEq/L (3.5-5.1); TOTAL PROTEIN 7.1 gm/dL (6.4-8.2)
[2024-03-05 12:52] LABS: PH,URINE 5.5 (5.0-8.0); URINE APPEARANCE Clear; URINE BILIRRUBIN Negative (NEGATIVE); URINE BLOOD Negative; URINE COLOR Yellow; URINE GLUCOSE Negative (NEGATIVE); URINE KETONE Trace (NEGATIVE); URINE LEUKOCYTE Small; URINE NITRATE Negative; URINE PROTEIN 30 (NEGATIVE); URINE UROBILINOGEN 0.2 E.U./dl
[2024-03-05 12:57] LABS: URINE BACTERIA 343.9 uL (0.0-1933); URINE CAST 5.64 uL (0.0-1.40); URINE EPITHELIAL CELLS 53.1 uL (0.0-38.8); URINE RBC 18.9 uL (0.0-20.8); URINE WBC 59.5 uL (0.0-23.2)
[2024-03-05 12:59] LABS: MYCOPLASMA PNEUMONIAE IGM NON REACTIVE (NO REACTIVE)
== END 2024-03-05 10:52 | disposition home or self-care (01) ==
LOC: LAB 10:39
PROVIDERS: ATTEND Urology
DX: N30.00 Acute cystitis without hematuria (principal); N31.1 Reflex neuropathic bladder, not elsewhere classified; J02.0 Streptococcal pharyngitis; J11.1 Influenza due to unidentified influenza virus with other respiratory manifestations; A49.3 Mycoplasma infection, unspecified site; Z11.52 Encounter for screening for COVID-19; B97.4 Respiratory syncytial virus as the cause of diseases classified elsewhere

== ENCOUNTER 2024-03-05 15:22 | Emergency (ER) | payer OTHER ==
[~2024-03-05] VITALS: Ht 160 cm; Wt 49.9 kg
[2024-03-05 18:30] LABS: ABG PH 7.422 (7.35-7.45); ABG PO2 79.3 mmHg (80-100); ABG pCO2 35.9 mmHg (35-45); BICARBONATE 22.9 mmol/l (23-25); SaO2 95.8 %; allen test SATISFACTORY; puncture site RADIAL RIGHT
[2024-03-05 18:31] LABS: o2 21 %
== END 2024-03-05 19:13 | disposition home or self-care (01) ==
LOC: ER 15:24
PROVIDERS: General Practice
DX: R06.02 Shortness of breath (principal); Z88.0 Allergy status to penicillin; Z88.2 Allergy status to sulfonamides; Z91.018 Allergy to other foods; Z91.041 Radiographic dye allergy status

== ENCOUNTER 2024-03-10 11:30 | Outpatient (CLI) | payer OTHER | END 2024-03-10 11:34 | disposition home or self-care (01) | LOC: RAD 11:30 | PROVIDERS: ATTEND Urology | DX: R05.3 Chronic cough (principal) ==

== ENCOUNTER 2024-03-10 13:19 | Outpatient (CLI) | payer OTHER | END 2024-03-10 13:31 | disposition home or self-care (01) | LOC: LAB 13:19 | PROVIDERS: ATTEND Urology | DX: N30.80 Other cystitis without hematuria (principal); N30.20 Other chronic cystitis without hematuria ==

== ENCOUNTER → 2024-03-28 | Outpatient (CLI) | payer OTHER | END | disposition home or self-care (01) | LOC: TOM 13:13 | PROVIDERS: ATTEND Urology | DX: M25.561 Pain in right knee (principal); M25.562 Pain in left knee ==

== ENCOUNTER 2024-04-25 13:07 | Outpatient (CLI) | payer OTHER | END 2024-04-25 13:15 | disposition home or self-care (01) | LOC: RAD 13:07 | PROVIDERS: ATTEND Urology | DX: S22.31XA Fracture of one rib, right side, initial encounter for closed fracture (principal) ==

== ENCOUNTER 2024-05-17 10:45 | Outpatient (CLI) | payer OTHER ==
[2024-05-17 11:41] LABS: HEMATOCRIT 33.1 % (36.0-45.00); HEMOGLOBIN 11.5 g/dL (12.0-15.00); MEAN CELL VOLUME 93.4 fL (80.00-100.00); MEAN CORPUSCULAR HEMOGLOBIN 32.4 pg (27.00-32.0); MEAN CORPUSCULAR HGB CONC 34.7 g/dl (32.0-36.0); PLATELET COUNT 323 K/uL (150-450); RED BLOOD COUNT 3.55 M/uL (4.00-6.00); RED CELL DISTRIBUTION WIDTH 16.6 % (11.5-14.5)
[2024-05-17 11:56] LABS: ERYTHROCYTE SEDIMENTATION RATE 30 mm/hr
[2024-05-17 12:27] LABS: PH,URINE 7.5 (5.0-8.0); URINE APPEARANCE Clear; URINE BILIRRUBIN Negative (NEGATIVE); URINE BLOOD Negative; URINE COLOR Yellow; URINE GLUCOSE Negative (NEGATIVE); URINE KETONE Negative (NEGATIVE); URINE LEUKOCYTE Trace; URINE NITRATE Negative; URINE PROTEIN Negative (NEGATIVE)
[2024-05-17 12:28] LABS: URINE BACTERIA 174.9 uL (0.0-1933); URINE EPITHELIAL CELLS 15.4 uL (0.0-38.8); URINE RBC 7.6 uL (0.0-20.8)
[2024-05-17 12:43] LABS: ALBUMIN 3.5 gm/dL (3.4-5.0); BILIRUBIN TOTAL 0.64 mg/dL (0.3-1.2); CALCIUM 9.2 mg/dL (8.5-10.1); CREATININE SERUM 0.78 mg/dL (0.55-1.02); GFR 71.06; GLOBULINA 3.7 G/DL (2.4-3.5); POTASSIUM 4.27 mEq/L (3.5-5.1); TOTAL PROTEIN 7.2 gm/dL (6.4-8.2)
[2024-05-17 13:00] LABS: VITAMIN D3 25 HYDROXY 27.01 ng/ml (30-120)
== END 2024-05-17 10:46 | disposition home or self-care (01) ==
LOC: LAB 10:45
PROVIDERS: ATTEND Urology
DX: E55.9 Vitamin D deficiency, unspecified (principal); A51.1 Primary anal syphilis; M13.80 Other specified arthritis, unspecified site; N30.00 Acute cystitis without hematuria

== ENCOUNTER 2024-06-03 13:02 | Outpatient (CLI) | payer OTHER ==
[2024-06-03 14:58] LABS: PH,URINE 5.5 (5.0-8.0); URINE APPEARANCE Clear; URINE BILIRRUBIN Negative (NEGATIVE); URINE BLOOD Negative; URINE COLOR Yellow; URINE GLUCOSE Negative (NEGATIVE); URINE KETONE Negative (NEGATIVE); URINE LEUKOCYTE Small; URINE NITRATE Negative; URINE PROTEIN Trace (NEGATIVE)
[2024-06-03 14:59] LABS: URINE BACTERIA 7172.3 uL (0.0-1933); URINE EPITHELIAL CELLS 22.3 uL (0.0-38.8)
[2024-06-03 15:16] LABS: URINE CAST 0.29 uL (0.0-1.40)
[2024-06-03 15:40] LABS: ALBUMIN 3.7 gm/dL (3.4-5.0); BILIRUBIN TOTAL 0.51 mg/dL (0.3-1.2); CALCIUM 9.1 mg/dL (8.5-10.1); CHOL HDL RATIO 2.1 (0-5.0); CREATININE SERUM 0.76 mg/dL (0.55-1.02); GFR 73.22; GLOBULINA 3.4 G/DL (2.4-3.5); POTASSIUM 3.9 mEq/L (3.5-5.1); TOTAL PROTEIN 7.1 gm/dL (6.4-8.2)
== END 2024-06-03 13:17 | disposition home or self-care (01) ==
LOC: LAB 13:02
PROVIDERS: ATTEND Internal Medicine Endocrinology, Diabetes & Metabolism
DX: E78.5 Hyperlipidemia, unspecified (principal); E03.8 Other specified hypothyroidism; R73.03 Prediabetes; A07.1 Giardiasis [lambliasis]; R19.7 Diarrhea, unspecified; N30.00 Acute cystitis without hematuria

== ENCOUNTER 2024-11-24 03:42 | Emergency (ER) | payer OTHER ==
[~2024-11-24] VITALS: Ht 160 cm; Wt 59.0 kg
[2024-11-24 03:54] VITALS: BP 153/67; O2SAT 97
[2024-11-24] MEDS ORDERED: ARMOUR THYROID90 MG PO (03:59)
[2024-11-24] MEDS ORDERED: MEDROL4 MG PO (04:00)
[2024-11-24] MEDS ORDERED: ALBUTEROL0.63 MG/3 IH (04:00)
[2024-11-24] MEDS ORDERED: LEVALBUTEROL HCL 0.63 MG/3 ML SOLUTION IH STA (04:27)
[2024-11-24] MEDS ORDERED: DEXAMETHASONE SODIUM PHOSPHATE 4 MG/ML VIAL IM STA (04:29)
[2024-11-24] MEDS ORDERED: METHYLPREDNISOLONE SOD SUCC 40 MG VIAL IM STA (04:31)
[2024-11-24] MEDS ORDERED: XOPENEX HFA15 GM IH (04:54)
[2024-11-24] MEDS ORDERED: MEDROLPACK PO (04:59)
== END 2024-11-24 10:33 ==
LOC: ER 03:42
DX: R06.02 Shortness of breath (principal); Z88.0 Allergy status to penicillin; Z91.018 Allergy to other foods; Z91.041 Radiographic dye allergy status
CPT/HCPCS: 71045; 94640; 96372; 99283; J1100; J3490

== ENCOUNTER 2024-12-05 01:25 | Emergency (ER) | payer OTHER ==
[~2024-12-05] VITALS: Ht 160 cm; Wt 61.2 kg
[~2024-12-05 01:25] MED LIST changes: +ALBUTEROL0.63 MG/3 IH; +ARMOUR THYROID90 MG PO; +MEDROL4 MG PO; +XOPENEX HFA15 GM IH
[2024-12-05 01:39] VITALS: BP 168/78; O2SAT 96
[2024-12-05] MEDS ORDERED: ALLEGRA-D 24 H1 EACH PO (01:42)
[2024-12-05] MEDS ORDERED: LEVALBUTEROL HCL 0.63 MG/3 ML SOLUTION IH SCH (03:30)
[2024-12-05] MEDS ORDERED: KETOROLAC TROMETHAMINE 60 MG VIAL IM ONE (03:30)
[2024-12-05] MEDS ORDERED: GUAIFENESIN 200 MG/10 ML BLIST.PACK PO STA (03:31)
[2024-12-05] MEDS ORDERED: KETOROLAC TROMETHAMINE 60 MG VIAL IM STA (03:31)
[2024-12-05] MEDS ORDERED: GUAIFENESIN 200 MG/10 ML BLIST.PACK PO ONE (03:31)
[2024-12-05] MEDS ORDERED: LEVALBUTEROL HCL 0.63 MG/3 ML SOLUTION IH ONE ×2 (03:58→11:30)
[2024-12-05] MEDS ORDERED: VOLTAREN ARTHRI20 GM TOP (06:53)
== END 2024-12-05 11:00 | disposition home or self-care (01) ==
LOC: ER 01:42
DX: J45.901 Unspecified asthma with (acute) exacerbation (principal); R06.02 Shortness of breath; Z88.0 Allergy status to penicillin; Z88.1 Allergy status to other antibiotic agents; Z91.013 Allergy to seafood; Z91.018 Allergy to other foods; M25.511 Pain in right shoulder
CPT/HCPCS: 94640; 96372; 99284; J1885

== ENCOUNTER 2025-04-14 12:55 | Outpatient (CLI) | payer OTHER ==
[~2025-04-14 12:55] MED LIST changes: +ALLEGRA-D 24 H1 EACH PO
== END 2025-04-14 13:00 | disposition home or self-care (01) ==
LOC: RAD 12:55
PROVIDERS: ATTEND Urology
DX: J45.991 Cough variant asthma (principal)